=== PATIENT | male | born 1960 | race Caucasian/White ===

== ENCOUNTER 2018-09-15 12:19 | Day surgery (SDC) | payer OTHER ==
[2018-09-12 13:06] VITALS: BMI 38.4
[2018-09-15] MEDS ORDERED: DEXAMETHASONE SOD PHOSPHATE/PF 10 MG/ML SDV ONE (14:49)
[2018-09-15] MEDS ORDERED: MIDAZOLAM HCL 2 MG/2 ML SINGLE DOSE VIAL ONE ×2 (14:49→16:33)
[2018-09-15] MEDS ORDERED: BUPIVACAINE HCL/PF (5 MG/ML) 30 ML VIAL IJ ONE ×2 (14:50→16:28)
[2018-09-15] MEDS ORDERED: ONDANSETRON 4 MG/2 ML VIAL IVPUSH PRN (15:07)
[2018-09-15] MEDS ORDERED: oxyCODONE HCL 5 MG TABLET PO PRN ×3 (15:08→19:07)
[2018-09-15] MEDS ORDERED: LACTATED RINGERS SOLUTION 1,000 ML IV SCH ×2 (15:15→18:45)
[2018-09-15] MEDS ORDERED: HYDROmorphone HCL 0.5 MG/0.5 ML SYRINGE ONE (16:23)
[2018-09-15] MEDS ORDERED: ceFAZolin SODIUM 1 GM VIAL ONE (16:54)
[2018-09-15] MEDS ORDERED: ePHEDrine SULFATE 50 MG/1 ML AMPULE ONE (16:59)
--- NOTE | 2018-09-15 19:00 | PN ---
Progress Note (short form) - Note Progress Note: 57M s/p left ankle tendon transfer and application of short leg cast POD #0. -Pain control. -q15-30 min LLE neurovascular checks: ensure all toes are warm and well perfused with brisk capillary refill. -f/u trial of void: 8 hrs. max. -DVT PPx: -Chemical: ASA 81mg PO BID x 6 weeks. -Mechanical: SCD's, SEBASTIEN's. -Abx. x 24 hrs. post-op. -Incentive spirometry. -PT/OT/Rehab, OOB. -NWB LLE. -Elevate LLE on 3-4 pillows. -Cast care. -Diet as tolerated. -Care per medical hospitalist team. -Discharge planning: f/u [facility] [place] [facility] 09/21/2018; call for appointment: . -Will follow. Khoa Zee MD (Orthopaedic Surgery).
[2018-09-15] MEDS ORDERED: ONDANSETRON 4 MG/2 ML VIAL ONE (19:02)
--- NOTE | 2018-09-15 19:02 | OP ---
Operative Note - Note: Operative Date: 09/15/18 Pre-Operative Diagnosis: Recurrent left ankle instability Operation: Left ankle Easton-Fuentes procedure: peroneus brevis tendon transfer. Application of left short leg cast. Post-Operative Diagnosis: Same as Pre-op Surgeon: Khoa Zee Internal Review And Audit Compliance: Abdias Zee Anesthesiologist/NATUROPATH: Sid Santana Anesthesia: General, Local Estimated Blood Loss (mls): 0 Fluid Volume Replaced (mls): 700 (Crystalloid) Operative Report Dictated: Yes
[2018-09-15] MEDS ORDERED: oxyCODONE HCL 5 MG TABLET ONE (19:30)
[2018-09-15] MEDS ORDERED: ACETAMINOPHEN 325 MG TABLET (FP) ONE (19:34)
[2018-09-15] MEDS: ACETAMINOPHEN 325 MG TABLET (FP) PO SCH ×2 (19:35→21:41)
[2018-09-15] MEDS: oxyCODONE HCL 5 MG TABLET PO PRN ×2 (19:35→23:07)
[2018-09-15] MEDS: ASPIRIN COATED 81 MG TABLET.EC PO SCH (21:43)
[2018-09-15] MEDS ORDERED: PATIENT'S OWN MEDICATION (NON-FORMULARY) (Oxycodone Hcl [Oxycodone Hcl] 30 MG) PO SCH (22:00)
[2018-09-15] MEDS ORDERED: oxyCODONE HCL 10 MG SUSTAINED ACTING TABLET PO SCH (22:00)
[2018-09-15] MEDS ORDERED: ATORVASTATIN CA 40 MG TABLET (FP) PO SCH (22:00)
[2018-09-16] MEDS: ACETAMINOPHEN 325 MG TABLET (FP) PO SCH ×2 (03:45→09:15)
[2018-09-16] MEDS: oxyCODONE HCL 5 MG TABLET PO PRN ×3 (05:47→13:10)
[2018-09-16 08:15] VITALS: TEMP 98
[2018-09-16 08:39] LABS: HEMOGLOBIN 12.1 GM/dl (11.7-16.9); RDW 16.9 % (11.9-15.9); WHITE BLOOD COUNT 10.1 K/mm3 (4.0-10.8)
[2018-09-16 08:42] LABS: HEMATOCRIT 35.3 % (35.4-49); MCHC 34.3 g/dl (32.0-35.9); MEAN CELL VOLUME 90.4 fl (80-96); MEAN PLT VOLUME 9.2 fl (7.5-11.1); PLATELET COUNT 237 K/MM3 (134-434)
[2018-09-16 08:43] LABS: ANION GAP 8 MMOL/L (8-16); BLOOD UREA NITROGEN 20 mg/dl (7-18); CALCIUM 8.7 mg/dl (8.5-10); CHLORIDE 101 mmol/L (98-107); CO2 23 mmol/L (21-32); CREATININE 0.9 mg/dl (0.55-1.3); GLUCOSE,RANDOM 159 mg/dl (74-106); POTASSIUM 4.8 mmol/L (3.5-5.1); SODIUM 132 mmol/L (136-145)
[2018-09-16] MEDS ORDERED: PT OWN MED DRAWER 7, Y5N ONE (09:38)
[2018-09-16] MEDS: ASPIRIN COATED 81 MG TABLET.EC PO SCH (10:00)
[2018-09-16] MEDS ORDERED: VERAPAMIL HCL 120 MG E.R. TABLET PO SCH (10:00)
--- NOTE | 2018-09-16 10:59 | DS ---
Physical Exam: SUBJECTIVE: Patient seen and examined OBJECTIVE: Vital Signs Period Temp Pulse Resp BP Sys/Krueger Pulse Ox Last 24 Hr 97.4 F-98.3 F 78-88 13-20 132-158/79-115 95-100 PHYSICAL EXAM GENERAL: The patient is awake, alert, and fully oriented, in no acute distress. HEAD: Normal with no signs of trauma. EYES: PERRL, extraocular movements intact, sclera anicteric, conjunctiva clear. ENT: Ears normal, nares patent, oropharynx clear without exudates, moist mucous membranes. NECK: Trachea midline, full range of motion, supple. LUNGS: Breath sounds equal, clear to auscultation bilaterally, no wheezes, no crackles, no accessory muscle use. HEART: Regular rate and rhythm, S1, S2 without murmur, rub or gallop. ABDOMEN: Soft, nontender, nondistended, normoactive bowel sounds, no guarding, no rebound, no hepatosplenomegaly, no masses. EXTREMITIES: 2+ pulses, warm, well-perfused, no edema. NEUROLOGICAL: Cranial nerves II through XII grossly intact. Normal speech, gait not observed. PSYCH: Normal mood, normal affect. SKIN: Warm, dry, normal turgor, no rashes or lesions noted. LABS Laboratory Results - last 24 hr 09/16/18 09/16/18 07:25 07:25 WBC 10.1 RBC 3.90 L Hgb 12.1 Hct 35.3 L MCV 90.4 MCH 31.0 MCHC 34.3 RDW 16.9 H Plt Count 237 MPV 9.2 Sodium 132 L Potassium 4.8 Chloride 101 Carbon Dioxide 23 Anion Gap 8 BUN 20 H Creatinine 0.9 Creat Clearance w eGFR 86.98 Random Glucose 159 H Calcium 8.7 HOSPITAL COURSE: Date of Admission:09/15/18 Date of Discharge: 09/16/18 Discharge Summary Reason For Visit: OSTEOARTHRITIS LEFT ANKLE Condition: Stable - Instructions Diet, Activity, Other Instructions: Non-weight bearing LLE Elevate LUE with 3-4 pillows Take ASA 81mg BID x 6 weeks Follow up with Dr. Zee 09/21/18, call to make apt [phone] Disposition: HOME - Home Medications Comprehensive Discharge Medication List: Ambulatory Orders Aspirin [Aspirin EC] 81 mg PO DAILY 09/12/18 Atorvastatin Ca [Lipitor] 40 mg PO DAILY 09/12/18 Oxycodone HCl 30 mg PO QID 09/12/18 Verapamil HCl [Verapamil ER] 120 mg PO DAILY 09/12/18 Aspirin Coated [Ecotrin -] 81 mg PO BID tablet.ec 09/16/18
--- NOTE | 2018-09-16 11:27 | OP ---
DATE OF OPERATION: 09/15/2018 SURGEON: Khoa Zee MD ETYMOLOGY TEACHER: Abdias Zee MD PREOPERATIVE DIAGNOSIS: Lateral collateral instability, ankle with torn anterior talofibular ligament, previous failed surgery. POSTOPERATIVE DIAGNOSIS: Lateral collateral instability, ankle with torn anterior talofibular ligament, previous failed surgery. OPERATION PERFORMED: A Easton-Fuentes tendon transfer and augmented repair of lateral collateral ligament. Application of below-knee cast. ANESTHESIA: General with popliteal block. ANTIBIOTICS GIVEN: Kefzol 3 g. OPERATION DETAILS: Patient was correctly identified, brought in the operating room. Left lower extremity was prepped and draped in the routine manner with Betadine scrub solution, wiped off with alcohol, DuraPrep applied, a free drape applied in a field. A curved incision just at the posterior border of the fibula performed, extending laterally around the ankle to the point just 1 inch below the tip, curved around to the forefoot, to about 1 inch beyond the lateral malleolus. Dissection was taken through the skin and subcutaneous tissue. The fascia was opened. The peroneal tendons were identified. It must be noted the peroneus brevis had previously been operated on, and microsutures were found within the confines of the tendon. The tendon was split. The 1/2 of the split component was fragmented. The other 1/2 of the component was utilized for the Easton-Fuentes repair. The muscle was dissected off the actual tendon. This was by utilizing the stripping angle. At that point, the dissection was taken into the anterolateral angle of the ankle joint. It was noted that the ATFL and soft tissues were completely deficient in this area. A Brostrom-type repair of the soft tissues performed, but the augmented Easton-Fuentes repair commenced with. The good component of the peroneus tendon was harvested, left attached distally to the tubercle of the 5th metatarsal. The peroneus longus was identified and verified that movement of the great toe brought about function of the peroneus longus tendon. This was left well alone. The retinaculum of the tendons had been opened appropriately. Using a 6.5 drill was drilled through the fibula approximately 1 inch, starting at the tip of the fibula and coming out posteriorly. A Jesus needle was utilized to feed a suture that had been placed at the proximal tip of the harvested peroneus brevis tendon and this was fed through the actual hole made in the fibula and the tendon passed through this hole and then turned over on itself and stitched itself back into the tendon distally, this in order to achieve solid fixation. The actual tendon we used 2-0 Ethibond suturing the tendon on itself as well as the tendon to the lateral surface of the fibula as well. The foot was held in eversion and slight dorsiflexion. Once the sutures were seated and the tendon appropriately tied and released, the reconstruction was beautifully tight, thus bringing about a complete soft tissue reconstruction of the ankle complex as well as the ATFL tendon. This was very gratifying. The tissues were thoroughly lavaged. The retinaculum was then closed with 2-0 Vicryl. The subcutaneous tissue, which was so thin, was closed all in 1 layer with the skin with vertical mattress 3-0 nylon sutures. At that point, the knee was flexed, the foot held in slight eversion, and a very thick padding of the sole of the foot performed with very thickly padded, below-knee cast applied; 2 layers of plaster , then covered up with fiberglass. Operation went well. No complications. MD FRANCHESCA Nuñez/[id number]
--- NOTE | 2018-09-16 11:43 | HOSP ---
Physical Examination Vital Signs: Vital Signs Temperature 98.0 F 09/16/18 08:00 Pulse Rate 78 09/16/18 08:00 Respiratory Rate 20 09/16/18 08:00 Blood Pressure 152/88 09/16/18 08:00 O2 Sat by Pulse Oximetry (%) 98 09/16/18 04:00 Labs: CBC, BMP 09/16/18 07:25 09/16/18 07:25 Hospitalist Encounter Assessment: pt seen this morning as per request from Dr. Zee to discharge patient. pt noted to have dried blood on sole of cast. marked by nurse. pt ambulated with PT, down murphy on unit and trail of small amount of blood noted, Dr. Zee called and made aware, who will be coming later today to see patient. Discharge cancelled. patient made aware.
[2018-09-16] MEDS ORDERED: ceFAZolin SODIUM 1 GM VIAL ONE (11:57)
[2018-09-16] MEDS ORDERED: DEXTROSE 5%-WATER 100 ML IVPB ONE (11:58)
[2018-09-16] MEDS ORDERED: CEFAZOLIN 2 GM in DEXTROSE 5%-WATER 100 ML IVPB SCH (12:30)
[2018-09-16 15:02] VITALS: BP 170/90; PULSE 72
[2018-09-16] MEDS ORDERED: hydrALAZINE HCL 25 MG TABLET (FP) PO ONE (15:07)
--- NOTE | 2018-09-16 15:40 | DS ---
Physical Exam: SUBJECTIVE: Patient seen and examined, pt seen by Dr. Zee, advised non-weight bearing in Left foot, mild bleeding noted when pt walked with PT earlier this morning, pt put weight on heel. pt ok for discharge. OBJECTIVE: Vital Signs Period Temp Pulse Resp BP Sys/Krueger Pulse Ox Last 24 Hr 97.4 F-98.3 F 72-88 13-20 132-170/79-99 95-98 PHYSICAL EXAM GENERAL: The patient is awake, alert, and fully oriented, in no acute distress. HEAD: Normal with no signs of trauma. EYES: PERRL, extraocular movements intact, sclera anicteric, conjunctiva clear. ENT: Ears normal, nares patent, oropharynx clear without exudates, moist mucous membranes. NECK: Trachea midline, full range of motion, supple. LUNGS: Breath sounds equal, clear to auscultation bilaterally, no wheezes, no crackles, no accessory muscle use. HEART: Regular rate and rhythm, S1, S2 without murmur, rub or gallop. ABDOMEN: Soft, nontender, nondistended, normoactive bowel sounds, no guarding, no rebound, no hepatosplenomegaly, no masses. EXTREMITIES: 2+ pulses, warm, well-perfused, no edema. NEUROLOGICAL: Cranial nerves II through XII grossly intact. Normal speech, gait not observed. PSYCH: Normal mood, normal affect. SKIN: Warm, dry, normal turgor, no rashes or lesions noted. LABS Laboratory Results - last 24 hr 09/16/18 09/16/18 07:25 07:25 WBC 10.1 RBC 3.90 L Hgb 12.1 Hct 35.3 L MCV 90.4 MCH 31.0 MCHC 34.3 RDW 16.9 H Plt Count 237 MPV 9.2 Sodium 132 L Potassium 4.8 Chloride 101 Carbon Dioxide 23 Anion Gap 8 BUN 20 H Creatinine 0.9 Creat Clearance w eGFR 86.98 Random Glucose 159 H Calcium 8.7 HOSPITAL COURSE: Date of Admission:09/15/18 Date of Discharge: 09/16/18 Conrado Lopes is a 57M s/p left ankle tendon transfer and application of short leg cast POD #1 -Pain control. -DVT PPx: -Chemical: ASA 81mg PO BID x 6 weeks. -Mechanical: SCD's, SEBASTIEN's. -Abx. x 24 hrs. post-op. -Incentive spirometry. -PT/OT/Rehab, OOB. -NWB LLE. -Elevate LLE on 3-4 pillows. -Cast care. -Diet as tolerated. -Care per medical hospitalist team. -Discharge planning: f/u [facility] [place] [facility] 09/21/2018; call for appointment: . Minutes to complete discharge: 30 Discharge Summary Reason For Visit: OSTEOARTHRITIS LEFT ANKLE Condition: Stable - Instructions Diet, Activity, Other Instructions: Non-weight bearing LLE Elevate LUE with 3-4 pillows Take ASA 81mg BID x 6 weeks Follow up with Dr. Zee 09/21/18, call to make apt [phone] Disposition: HOME - Home Medications Comprehensive Discharge Medication List: Ambulatory Orders Aspirin [Aspirin EC] 81 mg PO DAILY 09/12/18 Atorvastatin Ca [Lipitor] 40 mg PO DAILY 09/12/18 Oxycodone HCl 30 mg PO QID 09/12/18 Verapamil HCl [Verapamil ER] 120 mg PO DAILY 09/12/18 Aspirin Coated [Ecotrin -] 81 mg PO BID tablet.ec 09/16/18 This patient is new to me today: Yes Date on this admission: 09/16/18 Emergency Visit: No Critical Care patient: No - Discharge Referral Referred to [facility] Med [facility].C[facility] No
--- NOTE | 2018-09-16 15:49 | PN ---
Progress Note (short form) - Note Progress Note: POD#1 Easton Fuentes repair L ankle General status and vitals all stable Apyrexial C/O mild incisional pain O/E Cast slight blood staining on the sole Not tight No neurovascular deficit Sensation fully intact Moving toes flex/ext No sign of C/S No calf or subsartorial tenderness ASSESS Doing well for D/C home PLAN Pain Mx Keep elevated Mobilize NWB Walker Can put foot on ground to stabilize himself See in office 2 weeks for cast check
== END 2018-09-16 16:15 | disposition home or self-care (01) ==
LOC: FASU 12:19 → FM/S 20:19 → FASU 09-16 16:15
PROVIDERS: ATTEND Orthopaedic Surgery Orthopaedic Surgery of the Spine
PROC: 0LXT0ZZ Transfer Left Ankle Tendon, Open Approach (ICD-10-PCS; principal; 2018-09-15 17:29)
DX: S93.492A Sprain of other ligament of left ankle, initial encounter (principal); M25.372 Other instability, left ankle; X58.XXXA Exposure to other specified factors, initial encounter; Y93.9 Activity, unspecified; Y92.9 Unspecified place or not applicable; Z98.890 Other specified postprocedural states
CPT/HCPCS: 36415; 80048; 85027; 94760; 97116-GP; 97161-GP

== ENCOUNTER 2018-09-18 09:31 | Day surgery (SDC) | payer OTHER ==
[2018-09-18] MEDS ORDERED: oxyCODONE HCL 5 MG TABLET PO ONE ×2 (11:52→11:55)
[2018-09-18 11:54] VITALS: BMI 38.4
[2018-09-18] MEDS ORDERED: MIDAZOLAM HCL 2 MG/2 ML SINGLE DOSE VIAL ONE (13:35)
[2018-09-18] MEDS ORDERED: LIDOCAINE HCL/PF 2% SDV 5ML VIAL ONE (13:44)
[2018-09-18] MEDS ORDERED: fentaNYL CITRATE 250 MCG/5 ML VIAL ONE (13:44)
[2018-09-18] MEDS ORDERED: PROPOFOL 20 ML ONE ×2 (13:44)
[2018-09-18] MEDS ORDERED: SUCCINYLCHOLINE CHLORIDE 200 MG/10 ML VIAL ONE (13:44)
[2018-09-18] MEDS ORDERED: ePHEDrine SULFATE 50 MG/1 ML AMPULE ONE (14:19)
--- NOTE | 2018-09-18 14:27 | PN ---
Progress Note (short form) - Note Progress Note: 57M s/p left ankle tendon transfer and application of short leg cast POD #3. -Pain control. -f/u trial of void: 8 hrs. max. -DVT PPx: -Chemical: ASA 81mg PO BID x 6 weeks. -Mechanical: SCD's, SEBASTIEN's. -Abx. x 24 hrs. post-op. -Incentive spirometry. -PT/OT/Rehab, OOB. -NWB LLE. -Crutch training. -Elevate LLE on 3-4 pillows up to level of heart. -Cast care. -Diet as tolerated. -Care per medical hospitalist team. -Discharge planning: f/u [facility] [place] [facility] 09/28/2018; call for appointment: . -Will follow. Khoa Zee MD (Orthopaedic Surgery).
--- NOTE | 2018-09-18 14:30 | OP ---
Operative Note - Note: Operative Date: 09/18/18 Pre-Operative Diagnosis: Left ankle wound hematoma Operation: 1. Removal left short leg cast. 2. Evaculation left ankle hematoma. 3. Re-application left short leg cast Post-Operative Diagnosis: Same as Pre-op Surgeon: Khoa Zee Coal Grader: Abdias Zee Anesthesiologist/WELDING PANTOGRAPH MACHINE OPERATOR: Curly Crystal Anesthesia: General Fluid Volume Replaced (mls): 500 (Crystalloid) Operative Report Dictated: Yes
[2018-09-18] MEDS ORDERED: oxyCODONE HCL 5 MG TABLET PO PRN (14:38)
[2018-09-18] MEDS ORDERED: ONDANSETRON 4 MG/2 ML VIAL IVPUSH PRN (14:38)
[2018-09-18] MEDS ORDERED: PROMETHAZINE HCL 25 MG/1 ML VIAL IVPUSH PRN (14:38)
[2018-09-18] MEDS ORDERED: oxyCODONE HCL 10 MG SUSTAINED ACTING TABLET ONE (17:41)
[2018-09-18] MEDS ORDERED: oxyCODONE HCL 10 MG SUSTAINED ACTING TABLET PO ONE (17:45)
[2018-09-18] MEDS ORDERED: oxyCODONE HCL 5 MG TABLET PO SCH (18:00)
[2018-09-18 19:58] VITALS: BP 150/52; PULSE 75; TEMP 98
[2018-09-18] MEDS ORDERED: ATORVASTATIN CA 40 MG TABLET (FP) PO SCH (22:00)
[2018-09-19] MEDS ORDERED: VERAPAMIL HCL 120 MG E.R. TABLET PO SCH (10:00)
[2018-09-19] MEDS ORDERED: ASPIRIN COATED 81 MG TABLET.EC PO SCH (10:00)
--- NOTE | 2018-09-20 09:38 | OP ---
DATE OF OPERATION: DATE OF DICTATION: SURGEON: Khoa Zee MD LOCKSTITCH CUP SETTER: Abdias Zee MD PREOPERATIVE DIAGNOSIS: Wound hemorrhage and hematoma, left ankle. POSTOPERATIVE DIAGNOSIS: Wound hemorrhage and hematoma, left ankle. OPERATION PERFORMED: Removal of cast with attention to wound with clean up and appropriate reapplication of a new cast. ANESTHESIA: General. DESCRIPTION OF PROCEDURE: With the patient in the supine position, left lower extremity was draped. The cast was removed. The wound was dry, except there was a small area of hematoma which was extruded through the actual wound. In the wound loosely applied sutures. A very well padded cast was applied. It is a below-knee cast with the foot in slight dorsiflexion to hold the position of the ankle reconstruction repair that is the Easton-Fuentes repair that was performed 3 days ago. No neurovascular compromise. Patient will be followed in the office on a regular basis. MD FRANCHESCA Nuñez/[id number]
== END 2018-09-18 18:15 | disposition home or self-care (01) ==
LOC: JASU-SURG 09:31
PROVIDERS: ATTEND Orthopaedic Surgery Orthopaedic Surgery of the Spine
PROC: 2W3RX2Z Immobilization of Left Lower Leg using Cast (ICD-10-PCS; principal; 2018-09-18 12:00)
DX: M96.840 Postprocedural hematoma of a musculoskeletal structure following a musculoskeletal system procedure (principal); M96.830 Postprocedural hemorrhage of a musculoskeletal structure following a musculoskeletal system procedure; Y83.8 Other surgical procedures as the cause of abnormal reaction of the patient, or of later complication, without mention of misadventure at the time of the procedure; Y79.1 Therapeutic (nonsurgical) and rehabilitative orthopedic devices associated with adverse incidents; Y92.9 Unspecified place or not applicable
CPT/HCPCS: 94760

== ENCOUNTER 2020-01-01 10:53 | Emergency (ER) | payer OTHER ==
[2020-01-01 11:01] VITALS: BP 143/93; PULSE 96; TEMP 100.7; BMI 36.9
[2020-01-01] MEDS ORDERED: IBUPROFEN 600 MG TABLET (FP) PO ONE (11:04)
[2020-01-01] MEDS ORDERED: ACETAMINOPHEN 325 MG TABLET (FP) ONE (11:04)
--- NOTE | 2020-01-01 11:08 | PDOC ---
Rapid Medical Evaluation Chief Complaint: Cold Symptoms Time Seen by Provider: 01/01/20 11:03 Medical Evaluation: Allergies Allergy/AdvReac Type Severity Reaction Status Date / Time No Known Allergies Allergy Verified 09/18/18 11:54 Vital Signs Temp Pulse Resp BP Pulse Ox 100.7 F H 96 H 18 143/93 100 01/01/20 10:58 01/01/20 10:58 01/01/20 10:58 01/01/20 10:58 01/01/20 10:58 01/01/20 11:03 HPI: COVID-19 CDC guideline data points: The patient is a 59yo M presents with exposure to and suspected COVID-19 with associated symptoms of fever, myalgias complicated by this/these comorbidities: HTN, HLD. ROS: NEGATIVE: difficulty breathing, shortness of breath, chest pain, lightheadedness, dizziness, nausea, vomiting and diarrhea. Other 12 point ROS reviewed and negative. Exam: General: NAD, Well-Appearing, Awake, Alert Oriented x3. Vital signs stable. ENT: No rhinorrhea or nasal congestion. Neck: FROM, no midline tenderness. Lungs: Clear to auscultation bilaterally without wheezes, rhonchi or rales. Normal excursion. Patient is able to speak in full sentences. Heart: HR: 96. Regular rhythm, S1-S2 present, no murmurs rubs or gallops. Abdomen: Non-distended. MSK/Extremities: No decrease ROM, No obvious deformities. No obvious cyanosis noted. Neuro: Normal Gait, Cranial Nerves II through XII Grossly Intact. Skin: No obvious rashes, bruising. Color Normal Appearing. Assessment/Plan: myalgias, fever Patient has a history of this/these comorbidities: HTN, HLD, cardiomyopathy. Recent travel to [place]- back x3 weeks. Possible COVID exposure given recent Patient does not meet testing criteria at this time. ASSESSMENT: Denies recent travel and known Covid exposure. Treatment: Covid swab Tylenol 975mg PO now Motrin 600mg PO now Discharge Discharge Disposition - Diagnosis Counseled about COVID-19 virus infection URI (upper respiratory infection) Qualifiers: URI type: unspecified viral URI Qualified Code(s): J06.9 - Acute upper respiratory infection, unspecified - Discharge Dispostion Disposition: HOME Decision to Admit order: No - Referrals - Patient Instructions Printed Discharge Instructions: DI for Viral Upper Respiratory Infection -- Adult, [facility]-Coronavirus Instructions, [facility] COVID-19 Isolation Protocol - Post Discharge Activity
== END 2020-01-01 11:20 | disposition home or self-care (01) ==
LOC: JER 10:53
DX: J06.9 Acute upper respiratory infection, unspecified (principal)
CPT/HCPCS: 99283-25; U0003

== ENCOUNTER 2020-01-18 09:18 | Day surgery (SDC) | payer OTHER ==
[2020-01-14 12:17] VITALS: BMI 35.4
[2020-01-18] MEDS ORDERED: ROPIVACAINE HCL 0.5% 30ML VIAL ONE (09:48)
[2020-01-18] MEDS ORDERED: MIDAZOLAM HCL 2 MG/2 ML SINGLE DOSE VIAL ONE (09:48)
--- NOTE | 2020-01-18 10:14 | PN ---
Progress Note (short form) - Note Progress Note: 59M s/p RIGHT shoulder open Edilson procedure (distal claviculectomy), Neer Decompression (CA ligament release and acromioplasty), and primary rotator cuff tear (full thickness) POD #0. -Pain control: Duexis, Percocet ordered to patient's pharmacy. -Incentive spirometry. -No chemical DVT PPx. -LUE sling. -Begin RIGHT shoulder pendulum swings when pain controlled. -Daily RIGHT elbow, wrist & hand ROM. -Keep dressing clean & dry. -f/u in [facility] [place] [facility] within 7-10 days; call for appointment; . Khoa Zee MD (Orthopaedic Surgery).
--- NOTE | 2020-01-18 10:16 | OP ---
Operative Note - Note: Operative Date: 01/18/20 Pre-Operative Diagnosis: Right shoulder impingement syndrome with rotator cuff derangement Operation: Right shoulder open: 1. Edilson procedure (distal claviculectomy). 2. Neer Decompression (CA ligament release and acromioplasty). 3. Primary rotator cuff tear (full thickness) Post-Operative Diagnosis: Same as Pre-op Surgeon: Khoa Zee Rn Procedures: Abdias Zee Anesthesiologist/WOOD TURNER: Amberly Sanders Anesthesia: General, Local Specimens Removed: Excision arthroplasty right AC joint Estimated Blood Loss (mls): 20 Fluid Volume Replaced (mls): 1,000 (Crystalloid) Operative Report Dictated: Yes
[2020-01-18] MEDS ORDERED: fentaNYL CITRATE 250 MCG/5 ML VIAL ONE (11:04)
[2020-01-18] MEDS ORDERED: HYDROmorphone HCl 2 MG/ML VIAL ONE (11:31)
[2020-01-18] MEDS ORDERED: SUCCINYLCHOLINE CHLORIDE 200 MG/10 ML SYRINGE ONE (11:49)
[2020-01-18] MEDS ORDERED: ceFAZolin SODIUM 1 GM VIAL ONE (11:49)
[2020-01-18] MEDS ORDERED: ROCURONIUM BROMIDE 50 MG/5 ML SYRINGE ONE (11:49)
[2020-01-18] MEDS ORDERED: ONDANSETRON 4 MG/2 ML VIAL ONE (12:56)
[2020-01-18] MEDS ORDERED: TRANEXAMIC ACID 1000 MG/10 ML VIAL ONE (12:56)
[2020-01-18] MEDS ORDERED: DEXAMETHASONE SOD PHOSPHATE 4 MG/1 ML VIAL ONE (12:56)
[2020-01-18] MEDS ORDERED: GLYCOPYRROLATE 0.2 MG/1 ML VIAL ONE (13:19)
[2020-01-18] MEDS ORDERED: NEOSTIGMINE METHYLSULFATE 0.5 MG/ML - 10 ML MDV ONE (13:19)
[2020-01-18] MEDS ORDERED: oxyCODONE HCL 5 MG TABLET PO PRN (13:56)
[2020-01-18] MEDS ORDERED: PROMETHAZINE HCL 25 MG/1 ML VIAL IVPUSH PRN (13:56)
[2020-01-18] MEDS ORDERED: PROMETHAZINE HCL 25 MG/1 ML VIAL ONE (13:56)
[2020-01-18] MEDS ORDERED: ONDANSETRON 4 MG/2 ML VIAL IVPUSH PRN (13:56)
[2020-01-18] MEDS ORDERED: ACETAMINOPHEN 1000 MG/100 ML VIAL (NON FORMULARY) IVPB ONE (13:57)
[2020-01-18] MEDS ORDERED: LACTATED RINGERS SOLUTION 1,000 ML IV SCH (14:00)
[2020-01-18 16:17] VITALS: BP 118/86; PULSE 76; TEMP 97.9
--- NOTE | 2020-01-18 19:21 | OP ---
DATE OF OPERATION: 01/18/2020 SURGEON: Khoa Zee MD AUDIOVISUAL TECH: Abdias Zee MD PREOPERATIVE DIAGNOSIS: Recurrent post-traumatic rotator cuff repair with associated impingement syndrome, shoulder. POSTOPERATIVE DIAGNOSIS: Recurrent post-traumatic rotator cuff repair with associated impingement syndrome, shoulder. OPERATION PERFORMED: Right shoulder open: 1. Distal claviculectomy. (59585) 2. Acromioplasty & CA ligament release. (65112) 3. Repair of rotator cuff. (99242) 4. Excision arthroplasty AC joint ANESTHESIA: General. ANTIBIOTICS GIVEN: Ancef 2 g, tranexamic acid given as well. OPERATION DETAILS: With the patient correctly identified, brought to the operating room. Right upper extremity was prepped, draped in the routine manner with Betadine scrub solution, wiped off with alcohol, DuraPrep applied. A free drape of the right upper limb performed. The axilla was sealed out of harm's way. The incision was made from the tip of the acromion to the tip of the coracoid. The dissection was taken through the skin, subcutaneous tissue, down to the superior surface of the clavicle. This was then mobilized by placing a sharp Hohmann under the cranial and caudal border of the clavicle to lift the clavicle gently and delineate the acromioclavicular joint. A full acromioclavicular joint excision arthroplasty performed by resecting the lateral 1 cm of bone off the clavicle in a beveled fashion using oscillating saw. The joint itself appeared markedly arthritic once it had been resected. The coracoid which was beaked and the tip of the acromion were difficult to identify. This because of previous scar tissue, indicating this was either the result of previous arthroscopic surgery or possibly scarring as a result of the trauma that encountered. The undersurface of the acromion was identified. Using a peanut, the plane was developed between the undersurface of the acromion and the actual cuff. It must be noted this proved difficult and required sharp dissection as well as blunt dissection as outlined above. An [facility] retractor was placed in the undersurface of the deltoid, and gently lifting the deltoid up, the coracoacromial ligament was identified and transected 90 degrees to the fibers of the ligament itself. This freed the front of the rotator cuff. A Hohmann retractor was placed on the undersurface of the acromion, and a beveled acromioplasty was performed with an oscillating saw, using osteotomes as well to free the undersurface, taking out a thick fragment of bone which was digging into the actual rotator cuff. The acromion was intact and uncomplicated. Now, with digital palpation, the entire subacromial space was opened. This provided a marked freeing of the entire subacromial space. The rotator cuff now with the tissues appropriately retracted with self- retaining retractors, the cuff was identified. This was identified by flexing, by clearly putting the shoulder through a full range of movement, and the cuff tear, which measured approximately 3 cm, which was a combination of the anterior cable as well extending posteriorly towards infraspinatus was sutured using No. 1 Vicryl interrupted sutures. Tight water-seal closure achieved. The wounds were thoroughly lavaged. At that point, minor trimming of sharp edges of bone was performed with the rongeur. Closures: Subcutaneous fat with No. 2-0 Vicryl, skin with 3-0 Monocryl, Steri-Strips. Operation went well. No complications. A sling has been applied. MD FRANCHESCA Nuñez/[id number] MTDRuma
--- NOTE | 2020-01-23 16:45 | PATH ---
Surgical Pathology Report Patient Name: LUCIAN BAEZ [facility]. Rec. #: [id number] /Age/Gender: 1960 (Age: 59) / M Account: [id number] Location: [facility] Taken: 01/18/2020 Received: 01/18/2020 Reported: 01/23/2020 Physicians: Khoa Zee M.D. Specimen(s) Received RIGHT CLAVICLE/ACROMIUM Clinical History Right RCR/neer decompression/rotator cuff tear Final Diagnosis CLAVICLE/ACROMION, RIGHT, ARTHROPLASTY, ROTATOR CUFF REPAIR, DISTAL CLAVICULECTOMY: BONE WITH REACTIVE CHANGES, BONE MARROW WITH TRILINEAGE HEMATOPOIESIS, AND SKELETAL MUSCLE. Electronically Signed Blanca Doyle M.D. Gross Description Received in formalin labeled "right clavicle/acromion," are 2 mathias-yellow portions of bone measuring 2.7 x 1.5 x 0.7 cm and 3.3 x 2.1 x 1.4 cm. Also received within the same container is a 1.5 x 1.5 x 0.4 cm mathias brown portion of muscle and fibrous tissue. Adjunct English Instructor sections are submitted in one cassette, following decalcification. 01/22/2020 [facility]01/22/2020
== END 2020-01-18 16:00 | disposition home or self-care (01) ==
LOC: FASU 09:18
PROVIDERS: ATTEND Orthopaedic Surgery Orthopaedic Surgery of the Spine
PROC: 0LQ10ZZ Repair Right Shoulder Tendon, Open Approach (ICD-10-PCS; 2020-01-18)
PROC: 0PB90ZZ Excision of Right Clavicle, Open Approach (ICD-10-PCS; principal; 2020-01-18 12:38)
PROC: 0MN10ZZ Release Right Shoulder Bursa and Ligament, Open Approach (ICD-10-PCS; 2020-01-18 12:38)
DX: M75.121 Complete rotator cuff tear or rupture of right shoulder, not specified as traumatic (principal); M75.41 Impingement syndrome of right shoulder
CPT/HCPCS: 88304-TC; 88311-TC; 94760; J0131

== ENCOUNTER 2020-02-15 06:29 | Day surgery (SDC) | payer OTHER ==
[2020-02-11 16:54] VITALS: BMI 36.1
[~2020-02-15 06:29] MED LIST: BUPIVACAINE HCL/PF 0.25% (2.5MG/ML) 10 ML VIAL IJ ONE; methylPREDNISolone ACET (DEPO) 40 MG/1 ML VIAL IM ONE
--- OUTSIDE RECORDS SUMMARY | 2020-02-15 06:33 | XMS ---
:1960 Author Organization [facility] Support Name Relationship Address Phone UE, UNEMPLOYED Unavailable Unavailable Unavailable UE Unavailable Unavailable Unavailable APRIL BAEZ [address] [place] [address] APRIL BAEZ Spouse [address] [place] [address] Re-disclosure Warning The records that you are about to access may contain information from federally- assisted alcohol or drug abuse programs. If such information is present, then the following federally mandated warning applies: This information has been disclosed to you from records protected by federal confidentiality rules (42 CFR part 2). The federal rules prohibit you from making any further disclosure of this information unless further disclosure is expressly permitted by the written consent of the person to whom it pertains or as otherwise permitted by 42 CFR part 2. A general authorization for the release of medical or other information is NOT sufficient for this purpose. The Federal rules restrict any use of the information to criminally investigate or prosecute any alcohol or drug abuse patient.The records that you are about to access may contain highly sensitive health information, the redisclosure of which is protected by Article 27-F of the [facility] Public Health law. If you continue you may haveaccess to information: Regarding HIV / AIDS; Provided by facilities licensed or operated by the [facility] Office of Mental Health; or Provided by the [facility] Office for People With Developmental Disabilities. If such information is present, then the following [facility] mandated warning applies: This information has been disclosed to you from confidential records which are protected by state law. State law prohibits you from making any further disclosure of this information without the specific written consent of the person to whom it pertains, or as otherwise permitted by law. Any unauthorized further disclosure in violation of state law may result in a fine or longterm sentence or both. A general authorization for the release of medical or other information is NOT sufficient authorization for further disclosure. Insurance Providers Payer name Policy type Policy ID Covered Covered republican's Policy P kieran / Coverage republican ID relationship to [employer] Inf ormation type [employer] LOCAL [id number] - [id number] [place] [id number] [facility] SELF PAY INSURANCE Results ID Date Data Source [id number] 02/11/2020 08:59:00 AM EDT [facility] Name Value Range Interpretation Description Data Sup porting Code Source(s) Document(s ) SARS [facility] coronavirus 2 RNA This lab was ordered by JORDEN NEAL and reported by [facility]. ID Date Data Source [id number] 02/07/2020 09:50:00 AM EDT [facility] Name Value Range Interpretation Description Data Sup porting Code Source(s) Document(s ) SARS [facility] Coronavirus 2 RNA Presence Respiratory Specimen TR Probe Detection This lab was ordered by [place] and rep orted by [facility]. ID Date Data Source [id number] 01/14/2020 12:44:00 PM EDT [facility] Name Value Range Interpretation Description Data Sup porting Code Source(s) Document(s ) SARS [facility] coronavirus 2 RNA This lab was ordered by JORDEN NEAL and reported by [facility]. ID Date Data Source [id number] 01/09/2020 08:10:00 PM EDT [facility] Name Value Range Interpretation Code Description Data Diane rce(s) Supporting Document(s ) SARS-COV-2 [facility] RNA RESP Diagnostics QL TR+PROBE This lab was ordered by [facility] and reported by [facility]. ID Date Data Source [id number] 01/02/2020 11:02:00 AM EDT [facility] Name Value Range Interpretation Description Data Sup porting Code Source(s) Document(s ) SARS [facility] coronavirus 2 RNA This lab was ordered by [facility] and reported by [facility]. ID Date Data Source [id number] 12/01/2019 12:00:00 AM EDT [facility] Name Value Range Interpretation Code Description Data Diane rce(s) Supporting Document(s ) 2019-nCoV [facility] RNA XXX TR+probe- Imp This lab was ordered by MD EDU DUVAL and reported by [facility] Procedure
[2020-02-15] MEDS ORDERED: methylPREDNISolone ACET (DEPO) 40 MG/1 ML VIAL ONE (07:21)
[2020-02-15] MEDS ORDERED: BUPIVACAINE HCL/PF 0.25% (2.5MG/ML) 10 ML VIAL ONE (07:22)
[2020-02-15] MEDS ORDERED: EPINEPHrine 1:1,000 1 MG/1 ML - 30ML VIAL (INJECTION) ONE (07:22)
[2020-02-15] MEDS ORDERED: SUCCINYLCHOLINE CHLORIDE 200 MG/10 ML SYRINGE ONE (07:39)
[2020-02-15] MEDS ORDERED: MIDAZOLAM HCL 2 MG/2 ML SINGLE DOSE VIAL ONE (07:39)
[2020-02-15] MEDS ORDERED: PROPOFOL 20 ML ONE (07:39)
[2020-02-15] MEDS ORDERED: ePHEDrine SULFATE 50 MG/1 ML AMPULE ONE (08:25)
[2020-02-15] MEDS ORDERED: methylPREDNISolone ACET (DEPO) 40 MG/1 ML VIAL IM ONE (08:52)
[2020-02-15] MEDS ORDERED: BUPIVACAINE HCL/PF 0.25% (2.5MG/ML) 10 ML VIAL IJ ONE (08:52)
[2020-02-15] MEDS ORDERED: oxyCODONE HCL 5 MG TABLET PO PRN (09:12)
[2020-02-15] MEDS ORDERED: PROMETHAZINE HCL 25 MG/1 ML VIAL IVPUSH PRN (09:12)
[2020-02-15] MEDS ORDERED: ONDANSETRON 4 MG/2 ML VIAL IVPUSH PRN (09:12)
--- NOTE | 2020-02-15 09:12 | PN ---
Progress Note (short form) - Note Progress Note: 59M s/p surgical arthroscopy LEFT knee, medial femoral chondroplasty & removal of numerous large loose bodies POD #0. -Pain control. -Incentive spirometry. -No chemical DVT PPx. -WBAT RLE. -Keep dressing clean & dry. -Cane vs crutches. [facility]; call for appointment; . Khoa Zee MD (Orthopaedic Surgery).
--- NOTE | 2020-02-15 09:13 | OP ---
Operative Note - Note: Operative Date: 02/15/20 Pre-Operative Diagnosis: Internal derangement left knee Operation: Surgical arthroscopy left knee with: 1. Removal of multiple large loose bodies. 2. Chondroplasty medial femoral condyle Findings: Grade 4 chondromalacia: retropatellar surface, medial femoral condyle Degenerative ACL Rim osteophytes Post-Operative Diagnosis: Same as Pre-op Surgeon: Khoa Zee Anesthesiologist/VISUAL ARTS TEACHER: Sid Santana Anesthesia: General Fluid Volume Replaced (mls): 600 (Crystalloid) Operative Report Dictated: Yes
[2020-02-15] MEDS ORDERED: LACTATED RINGERS SOLUTION 1,000 ML IV SCH (09:15)
[2020-02-15] MEDS ORDERED: oxyCODONE HCL 5 MG TABLET ONE (09:59)
[2020-02-15] MEDS ORDERED: ASPIRIN COATED 81 MG TABLET.EC PO SCH (10:00)
[2020-02-15] MEDS ORDERED: PATIENT'S OWN MEDICATION (NON-FORMULARY) (Oxycodone Hcl [Oxycodone Hcl] 30 MG) PO SCH (10:00)
[2020-02-15 10:15] VITALS: TEMP 97.8
[2020-02-15 11:01] VITALS: BP 126/86; PULSE 76
--- NOTE | 2020-02-15 17:47 | OP ---
DATE OF OPERATION: 02/15/2020 SURGEON: Khoa Zee M.D. PREOPERATIVE DIAGNOSIS: Internal derangement left knee. 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 OPERATION PERFORMED: 1. Left knee arthroscopy with medial femoral condyle chondroplasty. (30948) 2. Removal of loose bodies. 3. Intra-articular (large joint) injection with 5cc 0.25% Marcaine and 1cc depomedrol (40mg/mL). (29056) ANESTHESIA: General. ANTIBIOTICS GIVEN: 2 g Ancef preoperative. INDICATION: Patient failed conservative treatment, had persistent locking and giving way sensation left knee. In the supine position using a left-sided leg gonzales in the bloodless field, a standard anterolateral and anteromedial portal was utilized. Arthroscopic instrumentation introduced into the knee . The arthroscopic findings revealed the presence of a fibrillar synovitis with patchy inflammatory changes in the suprapatellar pouch and the synovium diffusely was fibrillar but only patchy areas revealed inflammatory change. Multiple loose bodies were seen in the joint; these were washed out readily. The popliteal hiatus was entered on the lateral side revealing some loose bodies which were manipulated out of this area and with the suction device removed appropriately. The arthroscopic evaluation revealed the presence of fibrillar changes, that is Outerbridge level 2 changes on the medial patellar facets, but the lateral facets, they were ranging from 3 to grade 4 Outerbridge changes. Rim of osteophyte was noted along the femoral condyle, particularly in the area of the supracondylar pouch as well as the intracondylar notch. The trochlear groove revealed level 3 and 4 Outerbridge changes. The medial femoral condyle was most affected with some areas of eburnated bone and placing a hook, using the elbow of the hook loose unstable elements of hyaline cartilage were identified and shaved appropriately using a 3.5 shaver. This flattened and removed unstable fragments of hyaline cartilage. The rim osteophyte on the tibial plateau was really not a particularly on the area towards the intracondylar notch. The medial meniscus was abnormal in that it was stiff to probing but was fully intact. No tears were seen. This applied to both medial and lateral side. Staining of the tissues from previous cortisone injections readily throughout the synovium noted. Intracondylar notch revealed thickened ligamentum mucosae, as well as intact anterior cruciate ligament, albeit it did not appear normal, hence it was convoluted and some areas fragmented. The lateral joint surface was better in terms of preservation of the hyaline cartilage and these were Outerbridge level 2 and in some areas level 3 changes. Popliteus tendon was readily identified. The wound was lavaged once the shaving chondroplasty was completed, further extensive washout was performed. The wounds were closed with 3-0 nylon, and the joint instilled with 1mg of Depo-Medrol and 5 mL of Marcaine. No complications. MD FRANCHESCA Nuñez/[id number] MTDD
[2020-02-16] MEDS ORDERED: VERAPAMIL HCL 120 MG E.R. TABLET PO SCH (10:00)
[2020-02-16] MEDS ORDERED: ATORVASTATIN CA 40 MG TABLET (FP) PO SCH (22:00)
== END 2020-02-15 11:00 | disposition home or self-care (01) ==
LOC: FASU 06:29
PROVIDERS: ATTEND Orthopaedic Surgery Orthopaedic Surgery of the Spine
PROC: 0SCD4ZZ Extirpation of Matter from Left Knee Joint, Percutaneous Endoscopic Approach (ICD-10-PCS; 2020-02-15)
PROC: 0SBD4ZZ Excision of Left Knee Joint, Percutaneous Endoscopic Approach (ICD-10-PCS; principal; 2020-02-15 08:34)
DX: M17.12 Unilateral primary osteoarthritis, left knee (principal); M24.19 Other articular cartilage disorders, other specified site
CPT/HCPCS: 94760

== ENCOUNTER 2020-11-12 06:06 | Inpatient (IN) | payer OTHER ==
[2020-11-06 16:05] VITALS: BMI 36.6
[2020-11-12] MEDS ORDERED: LOCK ITEM NR ONE ×2 (06:34→06:51)
[2020-11-12] MEDS ORDERED: SODIUM CHLORIDE 0.9% P/F 10 ML VIAL IJ ONE (06:56)
[2020-11-12] MEDS ORDERED: MIDAZOLAM HCL 2 MG/2 ML SINGLE DOSE VIAL ONE ×3 (06:56→07:27)
[2020-11-12] MEDS ORDERED: BUPIVACAINE HCL/PF 0.5% (5MG/ML) 10 ML VIAL ONE (06:56)
[2020-11-12] MEDS ORDERED: BUPIVACAINE LIPOSOME/PF (EXPAREL) 266 MG/20 ML VIAL ONE (06:56)
[2020-11-12] MEDS ORDERED: LIDOCAINE HCL/PF 2% SDV 5ML VIAL ONE (07:27)
[2020-11-12] MEDS ORDERED: ceFAZolin SODIUM 1 GM VIAL ONE ×2 (07:27→09:38)
[2020-11-12] MEDS ORDERED: PROPOFOL 20 ML ONE ×2 (07:27)
[2020-11-12] MEDS ORDERED: VANCOMYCIN 1,000 MG VIAL (RESTRICTED TO ID ONLY) ONE (08:43)
[2020-11-12] MEDS ORDERED: TRANEXAMIC ACID 1000 MG/10 ML VIAL ONE (09:38)
[2020-11-12] MEDS ORDERED: BENZOIN/ALOE VERA/STORAX/TOLU 58 ML BOTTLE ONE (10:58)
[2020-11-12] MEDS ORDERED: KETOROLAC TROMETHAMINE 30 MG/1 ML VIAL ONE (11:06)
[2020-11-12 11:47] LABS: HIV INTERPRETATION NEGATIVE (NEGATIVE)
[2020-11-12] MEDS ORDERED: MAGNESIUM HYDROX 2400MG/30ML ORAL SUSPENSION 30 ML CUP PO PRN (11:59)
[2020-11-12] MEDS ORDERED: MAG HYDROX/AL HYDROX/SIMETH 30 ML UNIT-DOSE CUP PO PRN (11:59)
[2020-11-12] MEDS ORDERED: LACTATED RINGERS SOLUTION 1,000 ML IV SCH (12:00)
[2020-11-12] MEDS ORDERED: HYDROmorphone HCL/PF 1 MG/ML VIAL ONE (12:14)
[2020-11-12] MEDS: HYDROmorphone HCL/PF 1 MG/ML VIAL ONE ×3 (12:25→12:35)
[2020-11-12] MEDS ORDERED: HYDROmorphone HCl 2 MG/ML VIAL IVPUSH PRN ×2 (12:27→13:01)
[2020-11-12] MEDS ORDERED: ONDANSETRON 4 MG/2 ML VIAL ONE (12:34)
[2020-11-12] MEDS: ONDANSETRON 4 MG/2 ML VIAL IVPUSH PRN ×3 (12:37→23:46)
[2020-11-12] MEDS ORDERED: PCA PUMP NR ONE ×4 (12:37→17:59)
[2020-11-12] MEDS ORDERED: LORazepam 2 MG/ML SDV VIAL IVPB PRN (12:40)
[2020-11-12] MEDS: HYDROmorphone *PCA* 10MG/50ML DISP.SYRIN PCA SCH ×3 (12:47→18:20)
[2020-11-12] MEDS ORDERED: oxyCODONE HCL 5 MG TABLET PO SCH (14:00)
[2020-11-12] MEDS ORDERED: HYDROmorphone HCl 2 MG/ML VIAL SQ PRN (16:46)
[2020-11-12] MEDS: KETOROLAC TROMETHAMINE 30 MG/1 ML VIAL IVPUSH SCH ×2 (17:48→18:34)
[2020-11-12] MEDS: CEFAZOLIN 2 GM/D5W 2 GM/50 ML ML IVPB SCH ×3 (17:50→23:44)
[2020-11-12] MEDS: ASPIRIN 81 MG CHEWABLE TABLETS PO SCH (21:25)
[2020-11-12] MEDS: SENNOSIDES/DOCUSATE COMBO (SENNA PLUS) TABLET (UD) PO SCH (21:25)
[2020-11-12] MEDS ORDERED: CELECOXIB 200 MG CAPSULE PO SCH (22:00)
[2020-11-13] MEDS: KETOROLAC TROMETHAMINE 30 MG/1 ML VIAL IVPUSH SCH (01:14)
[2020-11-13] MEDS: CEFAZOLIN 2 GM/D5W 2 GM/50 ML ML IVPB SCH (06:06)
[2020-11-13 08:08] LABS: HEMATOCRIT 32.5 % (35.4-49); HEMOGLOBIN 11.1 GM/dl (11.7-16.9); MCH 31.9 pg (25.7-33.7); MEAN CELL VOLUME 93.8 fl (80-96); MEAN PLT VOLUME 8.9 fl (7.5-11.1); PLATELET COUNT 248 10^3/uL (134-434); RBC 3.46 M/mm3 (4.00-5.60); RDW 13.8 % (11.9-15.9); WHITE BLOOD COUNT 10.4 K/mm3 (4.0-10.8)
[2020-11-13 08:12] LABS: CALCIUM 8.1 mg/dl (8.5-10); CREATININE 1.1 mg/dl (0.55-1.3)
[2020-11-13] MEDS: PANTOPRAZOLE 40 MG TABLET PO SCH (09:47)
[2020-11-13] MEDS: ASPIRIN 81 MG CHEWABLE TABLETS PO SCH ×2 (09:47→21:06)
[2020-11-13] MEDS: SENNOSIDES/DOCUSATE COMBO (SENNA PLUS) TABLET (UD) PO SCH ×2 (09:48→21:06)
[2020-11-13] MEDS: VERAPAMIL HCL 120 MG E.R. TABLET PO SCH (09:52)
[2020-11-13] MEDS ORDERED: PCA PUMP NR ONE (11:25)
[2020-11-13] MEDS: HYDROmorphone *PCA* 10MG/50ML DISP.SYRIN PCA SCH (11:32)
[2020-11-13] MEDS ORDERED: KETOROLAC TROMETHAMINE 30 MG/1 ML VIAL IVPUSH PRN (11:34)
[2020-11-13] MEDS ORDERED: METOCLOPRAMIDE HCL INJECTION 10 MG/2 ML VIAL IVPUSH ONE (11:45)
[2020-11-13] MEDS ORDERED: ACETAMINOPHEN 1000 MG/100 ML VIAL (NON FORMULARY) IVPB ONE (11:45)
[2020-11-13] MEDS ORDERED: ATORVASTATIN CA 40 MG TABLET (FP) PO SCH (22:00)
[2020-11-14 04:36] VITALS: TEMP 98.3
[2020-11-14 08:37] LABS: HEMATOCRIT 28.3 % (35.4-49); HEMOGLOBIN 9.8 GM/dl (11.7-16.9); MCH 32.1 pg (25.7-33.7); MCHC 34.5 g/dl (32.0-35.9); MEAN CELL VOLUME 93.2 fl (80-96); MEAN PLT VOLUME 8.9 fl (7.5-11.1); PLATELET COUNT 179 10^3/uL (134-434); RBC 3.04 M/mm3 (4.00-5.60); RDW 13.9 % (11.9-15.9); WHITE BLOOD COUNT 7.2 K/mm3 (4.0-10.8)
[2020-11-14 09:28] VITALS: BP 136/78; PULSE 103
[2020-11-14] MEDS: VERAPAMIL HCL 120 MG E.R. TABLET PO SCH (09:29)
[2020-11-14] MEDS: PANTOPRAZOLE 40 MG TABLET PO SCH (09:29)
[2020-11-14] MEDS: ASPIRIN 81 MG CHEWABLE TABLETS PO SCH (09:29)
[2020-11-14] MEDS: SENNOSIDES/DOCUSATE COMBO (SENNA PLUS) TABLET (UD) PO SCH (09:29)
== END 2020-11-14 12:41 | disposition home or self-care (01) | DRG 470 ==
LOC: FM/S 06:06 → UNDOADMIN 06:06 → FM/S 14:22
PROVIDERS: ADMIT Orthopaedic Surgery Orthopaedic Surgery of the Spine; ATTEND Orthopaedic Surgery Orthopaedic Surgery of the Spine
PROC: 0SRD0J9 Replacement of Left Knee Joint with Synthetic Substitute, Cemented, Open Approach (ICD-10-PCS; principal; 2020-11-12 09:20)
DX: M17.12 Unilateral primary osteoarthritis, left knee (principal); I42.2 Other hypertrophic cardiomyopathy; I10 Essential (primary) hypertension; E78.5 Hyperlipidemia, unspecified; G47.33 Obstructive sleep apnea (adult) (pediatric); K21.9 Gastro-esophageal reflux disease without esophagitis; E66.9 Obesity, unspecified; Z68.36 Body mass index [BMI] 36.0-36.9, adult
CPT/HCPCS: 36415; 73560-TC-LT-FY; 80048; 85027; 86803; 87389; 94760; 97010-GP; 97116-GP; 97161-GP; J0131

== ENCOUNTER 2020-12-04 12:15 | Inpatient (IN) | payer OTHER ==
[2020-12-04 12:43] VITALS: BMI 36.6
[2020-12-04] MEDS ORDERED: AMOX TR/POT CLAV 500MG/125MG TABLETS (FP) PO ONE (13:39)
[2020-12-04] MEDS ORDERED: AMOX TR/POT CLAV 875MG/125MG TABLETS (FP) PO ONE (13:44)
[2020-12-04] MEDS ORDERED: oxyCODONE HCL 5 MG TABLET PO ONE (13:55)
[2020-12-04] MEDS ORDERED: AMOX TR/POT CLAV 875MG/125MG TABLETS (FP) ONE (14:14)
[2020-12-04] MEDS ORDERED: oxyCODONE HCL 5 MG TABLET ONE (14:14)
[2020-12-04] MEDS ORDERED: VANCOMYCIN 1 GM in D5W (PRE-DOCKED) 1,000 MG/250 ML IVPB ONE (14:50)
[2020-12-04 15:04] LABS: BASO % 1.1 % (0-2.0); EOS % 6.6 % (0-4.5); HEMATOCRIT 35.3 % (35.4-49); HEMOGLOBIN 11.9 GM/dL (11.7-16.9); MCH 30.9 pg (25.7-33.7); MCHC 33.7 g/dl (32.0-35.9); MEAN CELL VOLUME 91.7 fl (80-96); MEAN PLT VOLUME 8.1 fl (7.5-11.1); MONO % 10.5 % (3.8-10.2); NEUT % 68.8 % (42.8-82.8); PLATELET COUNT 427 10^3/uL (134-434); RBC 3.85 M/mm3 (4.00-5.60); RDW 14.8 % (11.9-15.9); WHITE BLOOD COUNT 7.7 K/mm3 (4.0-10.0)
[2020-12-04] MEDS ORDERED: VANCOMYCIN 1 GRAM (PRE-DOCKED) 1,000 MG/250 ML BAG IVPB ONE (15:11)
[2020-12-04 15:12] LABS: INR 1.28 (0.83-1.09); PROTHROMBIN TIME (PATIENT) 15.6 SEC (9.7-13.0)
[2020-12-04 15:14] LABS: ACTIVATED PTT 32.6 SECONDS (25.2-36.5)
[2020-12-04 15:31] LABS: ALBUMIN 3.6 g/dl (3.4-5.0); CALCIUM 9.4 mg/dL (8.5-10.1)
[2020-12-04 15:32] LABS: BLOOD UREA NITROGEN 13.6 mg/dL (7-18)
[2020-12-04 15:36] LABS: BILIRUBIN,TOTAL 0.6 mg/dL (0.2-1); TOT PROT 7.4 g/dl (6.4-8.2)
[2020-12-04] MEDS ORDERED: PANTOPRAZOLE 40 MG TABLET PO ONE (16:31)
[2020-12-04] MEDS ORDERED: HYDROmorphone HCl 2 MG/ML VIAL IVPUSH PRN (17:55)
[2020-12-04] MEDS ORDERED: PANTOPRAZOLE 20 MG TABLET PO ONE (20:59)
[2020-12-04] MEDS ORDERED: MAG HYDROX/AL HYDROX/SIMETH 30 ML UNIT-DOSE CUP PO ONE (21:01)
[2020-12-04] MEDS ORDERED: MORPHINE SULFATE 2 MG/ML VIAL IVPUSH ONE (21:11)
[2020-12-04] MEDS ORDERED: TRIMETHOBENZAMIDE HCL 300 MG CAPSULE PO ONE (21:22)
[2020-12-04] MEDS: ATORVASTATIN CA 40 MG TABLET (FP) PO SCH ×2 (21:26→21:27)
[2020-12-04] MEDS ORDERED: PT OWN MED DRAWER 7, Y5N ONE (22:36)
[2020-12-04] MEDS: AMPICILLIN NA/SULBACTAM NA 3 GM in SODIUM CHLORIDE 100 ML IVPB SCH (22:50)
[2020-12-05] MEDS ORDERED: MORPHINE SULFATE 2 MG/ML VIAL IVPUSH ONE (05:02)
[2020-12-05] MEDS ORDERED: MORPHINE SULFATE 2 MG/ML VIAL IVPUSH PRN (08:56)
[2020-12-05] MEDS ORDERED: HYDROmorphone HCl 2 MG/ML VIAL IVPB PRN ×4 (09:25→18:41)
[2020-12-05 09:27] LABS: BASO % 1.5 % (0-2.0); EOS % 10.7 % (0-4.5); HEMATOCRIT 30.9 % (35.4-49); HEMOGLOBIN 10.6 GM/dL (11.7-16.9); LYMPH % 18.1 % (8-40); MCH 31.6 pg (25.7-33.7); MCHC 34.3 g/dl (32.0-35.9); MEAN CELL VOLUME 92.2 fl (80-96); MEAN PLT VOLUME 8.3 fl (7.5-11.1); MONO % 12.4 % (3.8-10.2); NEUT % 57.3 % (42.8-82.8); PLATELET COUNT 357 10^3/uL (134-434); RBC 3.35 M/mm3 (4.00-5.60); RDW 15.3 % (11.9-15.9)
[2020-12-05] MEDS ORDERED: PT OWN MED DRAWER 7, Y5N ONE (09:31)
[2020-12-05 09:57] LABS: CALCIUM 8.5 mg/dL (8.5-10.1)
[2020-12-05 09:58] LABS: ALBUMIN 3.1 g/dl (3.4-5.0); BLOOD UREA NITROGEN 11.9 mg/dL (7-18); MAGNESIUM 2.2 mg/dL (1.8-2.4)
[2020-12-05 10:00] LABS: BILIRUBIN,TOTAL 0.5 mg/dL (0.2-1); TOT PROT 6.4 g/dl (6.4-8.2)
[2020-12-05] MEDS ORDERED: VERAPAMIL HCL 120 MG E.R. TABLET PO SCH (10:00)
[2020-12-05] MEDS ORDERED: ENOXAPARIN NA (PORCINE) 40 MG/0.4 ML DISP.SYRIN SQ SCH (10:00)
[2020-12-05 10:01] LABS: CREATININE 0.8 mg/dL (0.55-1.3)
[2020-12-05] MEDS: AMPICILLIN NA/SULBACTAM NA 3 GM in SODIUM CHLORIDE 100 ML IVPB SCH ×2 (10:30→12:06)
[2020-12-05] MEDS ORDERED: VANCOMYCIN PREMIX 1.5 GM 1,500 MG/300 ML BAG IVPB SCH (16:00)
[2020-12-05] MEDS ORDERED: DEXMEDETOMIDINE HCL 200 MCG/2 ML IVPB ONE (16:38)
[2020-12-05] MEDS ORDERED: ACETAMINOPHEN INJECTION 100 ML IVPB ONE (16:47)
[2020-12-05] MEDS ORDERED: LIDOCAINE HCL/PF 2% SDV 5ML VIAL ONE (16:56)
[2020-12-05] MEDS ORDERED: LIDOCAINE HCL 2% JELLY (5 ML/TUBE) ONE (16:56)
[2020-12-05] MEDS ORDERED: PROPOFOL 20 ML ONE ×2 (16:57)
[2020-12-05] MEDS ORDERED: MIDAZOLAM HCL 2 MG/2 ML SINGLE DOSE VIAL ONE (17:01)
[2020-12-05] MEDS ORDERED: VANCOMYCIN 1,000 MG VIAL (RESTRICTED TO ID ONLY) IVPB ONE (17:22)
[2020-12-05] MEDS ORDERED: ceFAZolin SODIUM 1 GM VIAL IVPB ONE (17:22)
[2020-12-05] MEDS ORDERED: ceFAZolin SODIUM 1 GM VIAL ONE (17:35)
[2020-12-05] MEDS ORDERED: PIPERACILLIN/TAZOB 3.375 GM 3.375 GM in DEXTROSE 5%-WATER - 50 ML IVPB SCH (18:00)
[2020-12-05] MEDS ORDERED: HYDROmorphone *PCA* 10MG/50ML DISP.SYRIN PCA SCH (18:15)
[2020-12-05] MEDS ORDERED: ONDANSETRON 4 MG/2 ML VIAL IVPUSH PRN (18:16)
[2020-12-05] MEDS ORDERED: HYDROmorphone *PCA* 10MG/50ML DISP.SYRIN ONE (18:25)
[2020-12-05] MEDS: HYDROmorphone *PCA* 10MG/50ML DISP.SYRIN PCA SCH ×2 (18:30→23:08)
[2020-12-05] MEDS ORDERED: PANTOPRAZOLE 40 MG TABLET PO ONE (18:41)
[2020-12-05] MEDS: DOCUSATE SODIUM 100 MG CAPSULE (FP) PO SCH (21:37)
[2020-12-05] MEDS: ASPIRIN 81 MG CHEWABLE TABLETS PO SCH (21:37)
[2020-12-05] MEDS: ATORVASTATIN CA 40 MG TABLET (FP) PO SCH (21:37)
[2020-12-05] MEDS: oxyCODONE HCL 5 MG TABLET PO SCH (21:42)
[2020-12-05] MEDS ORDERED: DOCUSATE SODIUM 100 MG CAPSULE (FP) PO SCH (22:00)
[2020-12-06 09:37] LABS: BASO % 1.2 % (0-2.0); EOS % 11.5 % (0-4.5); HEMATOCRIT 32.8 % (35.4-49); HEMOGLOBIN 10.9 GM/dL (11.7-16.9); LYMPH % 24.8 % (8-40); MCHC 33.3 g/dl (32.0-35.9); MEAN PLT VOLUME 8.2 fl (7.5-11.1); MONO % 9.7 % (3.8-10.2); NEUT % 52.8 % (42.8-82.8); PLATELET COUNT 333 10^3/uL (134-434); RBC 3.53 M/mm3 (4.00-5.60); RDW 15.2 % (11.9-15.9); WHITE BLOOD COUNT 4.5 K/mm3 (4.0-10.0)
[2020-12-06] MEDS ORDERED: PT OWN MED DRAWER 7, Y5N ONE (09:38)
[2020-12-06 09:46] LABS: CALCIUM 8.7 mg/dL (8.5-10.1)
[2020-12-06] MEDS: VERAPAMIL HCL 120 MG E.R. TABLET PO SCH (09:46)
[2020-12-06] MEDS: DOCUSATE SODIUM 100 MG CAPSULE (FP) PO SCH ×2 (09:46→21:47)
[2020-12-06] MEDS: oxyCODONE HCL 5 MG TABLET PO SCH (09:46)
[2020-12-06] MEDS: ASPIRIN 81 MG CHEWABLE TABLETS PO SCH ×2 (09:46→21:47)
[2020-12-06 09:47] LABS: ALBUMIN 3.5 g/dl (3.4-5.0); BLOOD UREA NITROGEN 13.3 mg/dL (7-18); MAGNESIUM 2.3 mg/dL (1.8-2.4)
[2020-12-06 09:51] LABS: BILIRUBIN,TOTAL 0.4 mg/dL (0.2-1); TOT PROT 7.2 g/dl (6.4-8.2)
[2020-12-06] MEDS ORDERED: POLYETHYLENE GLYCOL (HEALTHYLAX) 3350 17 GM PACKET PO SCH (10:00)
[2020-12-06] MEDS ORDERED: PIPERACILLIN/TAZOBACTAM 3.375 GM VIAL IVPB ONE ×2 (11:39→17:01)
[2020-12-06] MEDS ORDERED: DEXTROSE 5%-WATER - 50 ML IVPB ONE ×2 (11:40→17:01)
[2020-12-06] MEDS: PIPERACILLIN/TAZOB 3.375 GM 3.375 GM in DEXTROSE 5%-WATER - 50 ML IVPB SCH ×2 (11:46→17:14)
[2020-12-06] MEDS ORDERED: VANCOMYCIN PREMIX 1.5 GM 1,500 MG/300 ML BAG IVPB SCH (16:00)
[2020-12-06] MEDS ORDERED: PCA PUMP NR ONE (17:57)
[2020-12-06] MEDS: HYDROmorphone *PCA* 10MG/50ML DISP.SYRIN PCA SCH (17:58)
[2020-12-06] MEDS: ATORVASTATIN CA 40 MG TABLET (FP) PO SCH (21:47)
[2020-12-07] MEDS ORDERED: PIPERACILLIN/TAZOBACTAM 3.375 GM VIAL IVPB ONE ×3 (01:47→17:00)
[2020-12-07] MEDS ORDERED: DEXTROSE 5%-WATER - 50 ML IVPB ONE ×3 (01:47→17:00)
[2020-12-07] MEDS: PIPERACILLIN/TAZOB 3.375 GM 3.375 GM in DEXTROSE 5%-WATER - 50 ML IVPB SCH ×3 (02:06→17:06)
[2020-12-07 08:45] LABS: BASO % 1.4 % (0-2.0); EOS % 11.4 % (0-4.5); HEMATOCRIT 31.5 % (35.4-49); HEMOGLOBIN 10.6 GM/dL (11.7-16.9); LYMPH % 21.5 % (8-40); MCH 31.1 pg (25.7-33.7); MCHC 33.7 g/dl (32.0-35.9); MEAN CELL VOLUME 92.5 fl (80-96); MEAN PLT VOLUME 8.1 fl (7.5-11.1); MONO % 12.2 % (3.8-10.2); NEUT % 53.5 % (42.8-82.8); PLATELET COUNT 298 10^3/uL (134-434); RBC 3.41 M/mm3 (4.00-5.60); RDW 14.8 % (11.9-15.9); WHITE BLOOD COUNT 5.2 K/mm3 (4.0-10.0)
[2020-12-07 08:59] LABS: CALCIUM 8.8 mg/dL (8.5-10.1)
[2020-12-07 09:00] LABS: ALBUMIN 3.4 g/dl (3.4-5.0); BLOOD UREA NITROGEN 14.8 mg/dL (7-18); MAGNESIUM 2.3 mg/dL (1.8-2.4)
[2020-12-07 09:05] LABS: BILIRUBIN,TOTAL 0.3 mg/dL (0.2-1); TOT PROT 6.8 g/dl (6.4-8.2)
[2020-12-07] MEDS ORDERED: PT OWN MED DRAWER 7, Y5N ONE (09:14)
[2020-12-07] MEDS: DOCUSATE SODIUM 100 MG CAPSULE (FP) PO SCH ×2 (09:23→22:33)
[2020-12-07] MEDS: ASPIRIN 81 MG CHEWABLE TABLETS PO SCH ×2 (09:23→22:33)
[2020-12-07] MEDS: VERAPAMIL HCL 120 MG E.R. TABLET PO SCH (09:23)
[2020-12-07] MEDS ORDERED: VANCOMYCIN HCL 1,500 MG in DEXTROSE 5%-WATER - 500 ML IVPB ONE (11:45)
[2020-12-07] MEDS ORDERED: VANCOMYCIN PREMIX 1.5 GM 1,500 MG/300 ML BAG IVPB ONE (12:15)
[2020-12-07] MEDS ORDERED: PCA PUMP NR ONE ×2 (13:14→22:46)
[2020-12-07] MEDS: HYDROmorphone *PCA* 10MG/50ML DISP.SYRIN PCA SCH (13:15)
[2020-12-07] MEDS: ATORVASTATIN CA 40 MG TABLET (FP) PO SCH (22:33)
[2020-12-08] MEDS ORDERED: PIPERACILLIN/TAZOBACTAM 3.375 GM VIAL IVPB ONE ×3 (01:56→17:32)
[2020-12-08] MEDS ORDERED: DEXTROSE 5%-WATER - 50 ML IVPB ONE ×3 (01:57→17:33)
[2020-12-08] MEDS: PIPERACILLIN/TAZOB 3.375 GM 3.375 GM in DEXTROSE 5%-WATER - 50 ML IVPB SCH ×3 (02:01→17:36)
[2020-12-08 09:12] LABS: BASO % 1.5 % (0-2.0); EOS % 11.6 % (0-4.5); HEMATOCRIT 31.5 % (35.4-49); HEMOGLOBIN 10.8 GM/dL (11.7-16.9); LYMPH % 18.1 % (8-40); MCH 31.7 pg (25.7-33.7); MCHC 34.3 g/dl (32.0-35.9); MEAN CELL VOLUME 92.6 fl (80-96); MEAN PLT VOLUME 8.6 fl (7.5-11.1); MONO % 9.3 % (3.8-10.2); NEUT % 59.5 % (42.8-82.8); PLATELET COUNT 292 10^3/uL (134-434); RDW 14.8 % (11.9-15.9)
[2020-12-08] MEDS: ASPIRIN 81 MG CHEWABLE TABLETS PO SCH ×2 (09:36→22:08)
[2020-12-08] MEDS: VERAPAMIL HCL 120 MG E.R. TABLET PO SCH (09:36)
[2020-12-08] MEDS: DOCUSATE SODIUM 100 MG CAPSULE (FP) PO SCH ×2 (09:36→22:08)
[2020-12-08 10:01] LABS: ALBUMIN 3.4 g/dl (3.4-5.0); CALCIUM 8.6 mg/dL (8.5-10.1)
[2020-12-08 10:02] LABS: MAGNESIUM 2.1 mg/dL (1.8-2.4)
[2020-12-08 10:04] LABS: CREATININE 1.1 mg/dL (0.55-1.3)
[2020-12-08 10:06] LABS: TOT PROT 6.9 g/dl (6.4-8.2)
[2020-12-08 10:07] LABS: BILIRUBIN,TOTAL 0.4 mg/dL (0.2-1)
[2020-12-08] MEDS ORDERED: VANCOMYCIN PREMIX 1.5 GM 1,500 MG/300 ML BAG IVPB SCH (13:00)
[2020-12-08] MEDS: POLYETHYLENE GLYCOL (HEALTHYLAX) 3350 17 GM PACKET PO SCH (14:40)
[2020-12-08] MEDS: HYDROmorphone *PCA* 10MG/50ML DISP.SYRIN PCA SCH (17:44)
[2020-12-08] MEDS: ATORVASTATIN CA 40 MG TABLET (FP) PO SCH (22:08)
[2020-12-09] MEDS ORDERED: PIPERACILLIN/TAZOBACTAM 3.375 GM VIAL IVPB ONE ×2 (01:59→18:21)
[2020-12-09] MEDS ORDERED: DEXTROSE 5%-WATER - 50 ML IVPB ONE ×2 (02:00→18:21)
[2020-12-09] MEDS: PIPERACILLIN/TAZOB 3.375 GM 3.375 GM in DEXTROSE 5%-WATER - 50 ML IVPB SCH ×2 (02:01→18:23)
[2020-12-09] MEDS ORDERED: SUCCINYLCHOLINE CHLORIDE 200 MG/10 ML SYRINGE ONE (06:59)
[2020-12-09] MEDS ORDERED: PROPOFOL 20 ML ONE ×2 (06:59)
[2020-12-09] MEDS ORDERED: ROCURONIUM BROMIDE 100 MG/10 ML VIAL ONE (06:59)
[2020-12-09] MEDS ORDERED: DEXMEDETOMIDINE HCL 200 MCG/2 ML IVPB ONE (07:13)
[2020-12-09] MEDS ORDERED: ACETAMINOPHEN INJECTION 100 ML IVPB ONE (07:13)
[2020-12-09] MEDS ORDERED: MINERAL OIL/PETROLATUM,WHITE 3.5 GM TUBE ONE (07:23)
[2020-12-09 07:47] LABS: HEMATOCRIT 29.8 % (35.4-49); HEMOGLOBIN 10.1 GM/dL (11.7-16.9); LYMPH % 17.8 % (8-40); MCH 31.1 pg (25.7-33.7); MEAN CELL VOLUME 91.6 fl (80-96); MEAN PLT VOLUME 8.2 fl (7.5-11.1); MONO % 15.3 % (3.8-10.2); NEUT % 51.9 % (42.8-82.8); PLATELET COUNT 248 10^3/uL (134-434); RBC 3.25 M/mm3 (4.00-5.60); RDW 14.5 % (11.9-15.9); WHITE BLOOD COUNT 4.7 K/mm3 (4.0-10.0)
[2020-12-09 07:52] LABS: INR 1.27 (0.83-1.09); PROTHROMBIN TIME (PATIENT) 15.5 SEC (9.7-13.0)
[2020-12-09 08:08] LABS: CALCIUM 8.5 mg/dL (8.5-10.1)
[2020-12-09 08:09] LABS: ALBUMIN 3.1 g/dl (3.4-5.0); BLOOD UREA NITROGEN 13.1 mg/dL (7-18); MAGNESIUM 2.5 mg/dL (1.8-2.4)
[2020-12-09 08:12] LABS: CREATININE 0.9 mg/dL (0.55-1.3)
[2020-12-09 08:13] LABS: BILIRUBIN,TOTAL 0.4 mg/dL (0.2-1); TOT PROT 6.3 g/dl (6.4-8.2)
[2020-12-09] MEDS ORDERED: HYDROmorphone HCl 2 MG/ML VIAL ONE ×2 (09:56→12:22)
[2020-12-09] MEDS ORDERED: KETAMINE HCL 200 MG/20 ML VIAL ONE (09:56)
[2020-12-09] MEDS ORDERED: MIDAZOLAM HCL 2 MG/2 ML SINGLE DOSE VIAL ONE (09:56)
[2020-12-09] MEDS ORDERED: SEVOFLURANE 250 ML BTL ONE (10:14)
[2020-12-09] MEDS ORDERED: DESFLURANE GAS 240 ML BOTTLE IH ONE (10:14)
[2020-12-09] MEDS: VERAPAMIL HCL 120 MG E.R. TABLET PO SCH (10:38)
[2020-12-09] MEDS: POLYETHYLENE GLYCOL (HEALTHYLAX) 3350 17 GM PACKET PO SCH (10:38)
[2020-12-09] MEDS: DOCUSATE SODIUM 100 MG CAPSULE (FP) PO SCH ×2 (10:38→21:53)
[2020-12-09] MEDS: ASPIRIN 81 MG CHEWABLE TABLETS PO SCH (10:38)
[2020-12-09] MEDS ORDERED: ONDANSETRON 4 MG/2 ML VIAL ONE (10:44)
[2020-12-09] MEDS ORDERED: DEXAMETHASONE SOD PHOSPHATE 4 MG/1 ML VIAL ONE (10:44)
[2020-12-09] MEDS ORDERED: ONDANSETRON 4 MG/2 ML VIAL IVPUSH PRN ×4 (12:04→17:48)
[2020-12-09] MEDS ORDERED: MAG HYDROX/AL HYDROX/SIMETH 30 ML UNIT-DOSE CUP PO PRN (12:04)
[2020-12-09] MEDS ORDERED: MAGNESIUM HYDROX 2400MG/30ML ORAL SUSPENSION 30 ML CUP PO PRN (12:04)
[2020-12-09] MEDS ORDERED: LACTATED RINGERS SOLUTION 1,000 ML IV SCH (12:15)
[2020-12-09] MEDS ORDERED: HYDROmorphone HCl 2 MG/ML VIAL IVPUSH ONE ×2 (12:20→13:08)
[2020-12-09] MEDS ORDERED: HYDROmorphone *PCA* 10MG/50ML DISP.SYRIN PCA SCH (12:20)
[2020-12-09] MEDS ORDERED: HYDROmorphone *PCA* 10MG/50ML DISP.SYRIN PCA ONE (12:35)
[2020-12-09] MEDS ORDERED: DEXAMETHASONE SOD PHOSPHATE 4 MG/1 ML VIAL IVPUSH PRN ×2 (12:47→17:48)
[2020-12-09] MEDS ORDERED: PROMETHAZINE HCL 25 MG/1 ML VIAL IVPB PRN ×2 (12:47→17:48)
[2020-12-09] MEDS ORDERED: PROMETHAZINE HCL 25 MG/1 ML VIAL IVPUSH PRN (12:47)
[2020-12-09] MEDS ORDERED: HYDROmorphone *PCA* 10MG/50ML DISP.SYRIN PCA PRN (13:00)
[2020-12-09] MEDS: VANCOMYCIN PREMIX 1.5 GM 1,500 MG/300 ML BAG IVPB SCH (13:27)
[2020-12-09] MEDS: LACTATED RINGERS SOLUTION 1,000 ML IV SCH (13:27)
[2020-12-09] MEDS: GABAPENTIN 300 MG CAPSULE PO SCH ×2 (16:28→21:53)
[2020-12-09] MEDS: LIDOCAINE 5% TOPICAL PATCH TP SCH (16:28)
[2020-12-09] MEDS: HYDROmorphone *PCA* 10MG/50ML DISP.SYRIN PCA SCH ×2 (18:04→18:05)
[2020-12-09] MEDS ORDERED: PCA PUMP NR ONE (21:45)
[2020-12-09] MEDS: SENNOSIDES/DOCUSATE COMBO (SENNA PLUS) TABLET (UD) PO SCH (21:53)
[2020-12-09] MEDS: ATORVASTATIN CA 40 MG TABLET (FP) PO SCH (21:53)
[2020-12-09] MEDS: LIDOCAINE PATCH REMOVAL MC SCH (21:56)
[2020-12-09] MEDS: ASPIRIN COATED 81 MG TABLET.EC PO SCH (21:57)
[2020-12-09] MEDS ORDERED: ASPIRIN 325 MG TABLET PO SCH (22:00)
[2020-12-10] MEDS ORDERED: PIPERACILLIN/TAZOBACTAM 3.375 GM VIAL IVPB ONE ×3 (02:11→17:58)
[2020-12-10] MEDS ORDERED: DEXTROSE 5%-WATER - 50 ML IVPB ONE ×3 (02:11→17:59)
[2020-12-10] MEDS: PIPERACILLIN/TAZOB 3.375 GM 3.375 GM in DEXTROSE 5%-WATER - 50 ML IVPB SCH ×4 (02:14→22:31)
[2020-12-10] MEDS: LACTATED RINGERS SOLUTION 1,000 ML IV SCH (05:35)
[2020-12-10] MEDS: GABAPENTIN 300 MG CAPSULE PO SCH ×3 (06:45→21:26)
[2020-12-10] MEDS ORDERED: PCA PUMP NR ONE ×2 (08:10→13:08)
[2020-12-10 09:17] LABS: BASO % 0.9 % (0-2.0); EOS % 2.7 % (0-4.5); HEMATOCRIT 31.1 % (35.4-49); HEMOGLOBIN 10.6 GM/dL (11.7-16.9); LYMPH % 19.3 % (8-40); MCH 31.8 pg (25.7-33.7); MCHC 33.9 g/dl (32.0-35.9); MEAN CELL VOLUME 93.6 fl (80-96); MEAN PLT VOLUME 8.7 fl (7.5-11.1); MONO % 12.5 % (3.8-10.2); NEUT % 64.6 % (42.8-82.8); PLATELET COUNT 297 10^3/uL (134-434); RBC 3.32 M/mm3 (4.00-5.60); RDW 15.1 % (11.9-15.9)
[2020-12-10 10:08] LABS: ALBUMIN 3.7 g/dl (3.4-5.0); BLOOD UREA NITROGEN 13.6 mg/dL (7-18); CALCIUM 9.1 mg/dL (8.5-10.1); MAGNESIUM 2.5 mg/dL (1.8-2.4)
[2020-12-10 10:12] LABS: BILIRUBIN,TOTAL 0.4 mg/dL (0.2-1); TOT PROT 7.3 g/dl (6.4-8.2)
[2020-12-10] MEDS: LIDOCAINE 5% TOPICAL PATCH TP SCH (11:35)
[2020-12-10] MEDS: SENNOSIDES/DOCUSATE COMBO (SENNA PLUS) TABLET (UD) PO SCH ×2 (11:36→21:26)
[2020-12-10] MEDS: PANTOPRAZOLE 40 MG TABLET PO SCH (11:36)
[2020-12-10] MEDS: ASPIRIN COATED 81 MG TABLET.EC PO SCH ×2 (11:36→21:26)
[2020-12-10] MEDS: DOCUSATE SODIUM 100 MG CAPSULE (FP) PO SCH ×2 (11:36→21:26)
[2020-12-10] MEDS: POLYETHYLENE GLYCOL (HEALTHYLAX) 3350 17 GM PACKET PO SCH (11:37)
[2020-12-10] MEDS ORDERED: PT OWN MED DRAWER 7, Y5N ONE ×3 (11:40→13:30)
[2020-12-10] MEDS: oxyCODONE HCL 5 MG TABLET PO PRN ×2 (11:44→21:25)
[2020-12-10] MEDS: VERAPAMIL HCL 120 MG E.R. TABLET PO SCH (12:39)
[2020-12-10] MEDS: VANCOMYCIN PREMIX 1.5 GM 1,500 MG/300 ML BAG IVPB SCH (13:31)
[2020-12-10] MEDS: ATORVASTATIN CA 40 MG TABLET (FP) PO SCH (21:26)
[2020-12-10] MEDS: LIDOCAINE PATCH REMOVAL MC SCH (21:27)
[2020-12-11] MEDS ORDERED: DEXTROSE 5%-WATER - 50 ML IVPB ONE ×3 (02:08→18:35)
[2020-12-11] MEDS ORDERED: PIPERACILLIN/TAZOBACTAM 3.375 GM VIAL IVPB ONE ×3 (02:08→18:35)
[2020-12-11] MEDS: PIPERACILLIN/TAZOB 3.375 GM 3.375 GM in DEXTROSE 5%-WATER - 50 ML IVPB SCH ×3 (02:28→18:43)
[2020-12-11] MEDS: oxyCODONE HCL 5 MG TABLET PO PRN ×3 (03:54→18:46)
[2020-12-11] MEDS: GABAPENTIN 300 MG CAPSULE PO SCH ×3 (06:15→21:57)
[2020-12-11 08:59] LABS: BASO % 1.4 % (0-2.0); EOS % 12.3 % (0-4.5); HEMATOCRIT 27.3 % (35.4-49); HEMOGLOBIN 9.2 GM/dL (11.7-16.9); LYMPH % 23.5 % (8-40); MCH 31.2 pg (25.7-33.7); MCHC 33.7 g/dl (32.0-35.9); MEAN CELL VOLUME 92.7 fl (80-96); MEAN PLT VOLUME 8.8 fl (7.5-11.1); MONO % 10.4 % (3.8-10.2); NEUT % 52.4 % (42.8-82.8); PLATELET COUNT 233 10^3/uL (134-434); RBC 2.95 M/mm3 (4.00-5.60); RDW 14.9 % (11.9-15.9); WHITE BLOOD COUNT 5.3 K/mm3 (4.0-10.0)
[2020-12-11 09:18] LABS: CALCIUM 8.4 mg/dL (8.5-10.1)
[2020-12-11 09:19] LABS: BLOOD UREA NITROGEN 12.1 mg/dL (7-18)
[2020-12-11 09:25] LABS: BILIRUBIN,TOTAL 0.2 mg/dL (0.2-1)
[2020-12-11] MEDS ORDERED: PT OWN MED DRAWER 7, Y5N ONE (10:13)
[2020-12-11] MEDS: LIDOCAINE 5% TOPICAL PATCH TP SCH (10:22)
[2020-12-11] MEDS: DOCUSATE SODIUM 100 MG CAPSULE (FP) PO SCH ×2 (10:22→21:57)
[2020-12-11] MEDS: PANTOPRAZOLE 40 MG TABLET PO SCH (10:22)
[2020-12-11] MEDS: ASPIRIN COATED 81 MG TABLET.EC PO SCH ×2 (10:23→21:57)
[2020-12-11] MEDS: POLYETHYLENE GLYCOL (HEALTHYLAX) 3350 17 GM PACKET PO SCH (10:23)
[2020-12-11] MEDS: SENNOSIDES/DOCUSATE COMBO (SENNA PLUS) TABLET (UD) PO SCH ×2 (10:23→21:57)
[2020-12-11] MEDS: VERAPAMIL HCL 120 MG E.R. TABLET PO SCH (10:23)
[2020-12-11] MEDS: VANCOMYCIN PREMIX 1.5 GM 1,500 MG/300 ML BAG IVPB SCH (13:56)
[2020-12-11] MEDS: ATORVASTATIN CA 40 MG TABLET (FP) PO SCH (21:57)
[2020-12-11] MEDS: LIDOCAINE PATCH REMOVAL MC SCH (21:57)
[2020-12-12] MEDS: oxyCODONE HCL 5 MG TABLET PO PRN ×3 (00:20→21:37)
[2020-12-12] MEDS ORDERED: DEXTROSE 5%-WATER - 50 ML IVPB ONE ×4 (02:14→21:27)
[2020-12-12] MEDS ORDERED: PIPERACILLIN/TAZOBACTAM 3.375 GM VIAL IVPB ONE ×4 (02:14→21:27)
[2020-12-12] MEDS: PIPERACILLIN/TAZOB 3.375 GM 3.375 GM in DEXTROSE 5%-WATER - 50 ML IVPB SCH ×3 (02:36→18:30)
[2020-12-12] MEDS: GABAPENTIN 300 MG CAPSULE PO SCH ×3 (05:48→21:35)
[2020-12-12 07:51] LABS: BASO % 1.5 % (0-2.0); EOS % 12.8 % (0-4.5); HEMATOCRIT 28.1 % (35.4-49); HEMOGLOBIN 9.6 GM/dL (11.7-16.9); LYMPH % 20.5 % (8-40); MCH 31.2 pg (25.7-33.7); MCHC 34.2 g/dl (32.0-35.9); MEAN CELL VOLUME 91.1 fl (80-96); MEAN PLT VOLUME 8.7 fl (7.5-11.1); MONO % 14.2 % (3.8-10.2); PLATELET COUNT 231 10^3/uL (134-434); RBC 3.09 M/mm3 (4.00-5.60); RDW 14.3 % (11.9-15.9); WHITE BLOOD COUNT 5.6 K/mm3 (4.0-10.0)
[2020-12-12 08:18] LABS: BLOOD UREA NITROGEN 14.1 mg/dL (7-18); CALCIUM 8.4 mg/dL (8.5-10.1); MAGNESIUM 2.2 mg/dL (1.8-2.4)
[2020-12-12] MEDS ORDERED: IBUPROFEN 800 MG/8 ML IJ IVPB ONE (08:18)
[2020-12-12 08:23] LABS: BILIRUBIN,TOTAL 0.3 mg/dL (0.2-1)
[2020-12-12] MEDS ORDERED: PT OWN MED DRAWER 7, Y5N ONE ×2 (10:28→14:19)
[2020-12-12] MEDS: DOCUSATE SODIUM 100 MG CAPSULE (FP) PO SCH ×2 (10:36→21:35)
[2020-12-12] MEDS: PANTOPRAZOLE 40 MG TABLET PO SCH (10:36)
[2020-12-12] MEDS: SENNOSIDES/DOCUSATE COMBO (SENNA PLUS) TABLET (UD) PO SCH ×2 (10:36→21:34)
[2020-12-12] MEDS: ASPIRIN COATED 81 MG TABLET.EC PO SCH ×2 (10:37→21:35)
[2020-12-12] MEDS: LIDOCAINE 5% TOPICAL PATCH TP SCH (10:37)
[2020-12-12] MEDS: POLYETHYLENE GLYCOL (HEALTHYLAX) 3350 17 GM PACKET PO SCH (10:37)
[2020-12-12] MEDS: VERAPAMIL HCL 120 MG E.R. TABLET PO SCH (10:37)
[2020-12-12] MEDS ORDERED: valACYclovir HCL 1000 MG TABLET PO SCH (11:45)
[2020-12-12] MEDS ORDERED: valACYclovir HCL 500 MG TABLET (FP) ONE (14:19)
[2020-12-12] MEDS: VANCOMYCIN PREMIX 1.5 GM 1,500 MG/300 ML BAG IVPB SCH (14:21)
[2020-12-12] MEDS ORDERED: ACETAMINOPHEN INJECTION 100 ML IVPB ONE (15:44)
[2020-12-12] MEDS ORDERED: MIDAZOLAM HCL 2 MG/2 ML SINGLE DOSE VIAL ONE (15:56)
[2020-12-12] MEDS ORDERED: HYDROmorphone HCl 2 MG/ML VIAL ONE (15:56)
[2020-12-12] MEDS ORDERED: PROPOFOL 20 ML ONE ×2 (15:56)
[2020-12-12] MEDS ORDERED: SUCCINYLCHOLINE CHLORIDE 200 MG/10 ML SYRINGE ONE (15:58)
[2020-12-12] MEDS ORDERED: KETAMINE HCL 200 MG/20 ML VIAL ONE (16:02)
[2020-12-12] MEDS ORDERED: LIDOCAINE HCL/PF 2% SDV 5ML VIAL ONE (16:05)
[2020-12-12] MEDS ORDERED: ONDANSETRON 4 MG/2 ML VIAL IVPUSH PRN (17:38)
[2020-12-12] MEDS ORDERED: MAG HYDROX/AL HYDROX/SIMETH 30 ML UNIT-DOSE CUP PO PRN (17:38)
[2020-12-12] MEDS ORDERED: PROMETHAZINE HCL 25 MG/1 ML VIAL IVPB PRN (17:38)
[2020-12-12] MEDS ORDERED: MAGNESIUM HYDROX 2400MG/30ML ORAL SUSPENSION 30 ML CUP PO PRN (17:38)
[2020-12-12] MEDS: ATORVASTATIN CA 40 MG TABLET (FP) PO SCH (21:34)
[2020-12-12] MEDS: LIDOCAINE PATCH REMOVAL MC SCH (21:35)
[2020-12-12] MEDS ORDERED: LIDOCAINE PATCH REMOVAL MC SCH (22:00)
[2020-12-13] MEDS ORDERED: PIPERACILLIN/TAZOBACTAM 3.375 GM VIAL IVPB ONE ×3 (02:03→18:17)
[2020-12-13] MEDS ORDERED: DEXTROSE 5%-WATER - 50 ML IVPB ONE ×3 (02:03→18:17)
[2020-12-13] MEDS: PIPERACILLIN/TAZOB 3.375 GM 3.375 GM in DEXTROSE 5%-WATER - 50 ML IVPB SCH ×3 (02:05→18:21)
[2020-12-13] MEDS: GABAPENTIN 300 MG CAPSULE PO SCH ×3 (06:26→21:37)
[2020-12-13 08:44] LABS: BASO % 0.5 % (0-2.0); EOS % 0.4 % (0-4.5); HEMATOCRIT 32.6 % (35.4-49); HEMOGLOBIN 11.2 GM/dL (11.7-16.9); LYMPH % 13.5 % (8-40); MCH 31.6 pg (25.7-33.7); MCHC 34.3 g/dl (32.0-35.9); MEAN CELL VOLUME 92.3 fl (80-96); NEUT % 75.6 % (42.8-82.8); PLATELET COUNT 302 10^3/uL (134-434); RBC 3.53 M/mm3 (4.00-5.60); RDW 14.6 % (11.9-15.9); WHITE BLOOD COUNT 6.3 K/mm3 (4.0-10.0)
[2020-12-13] MEDS: oxyCODONE HCL 5 MG TABLET PO PRN ×3 (08:55→22:58)
[2020-12-13 09:13] LABS: MAGNESIUM 2.3 mg/dL (1.8-2.4)
[2020-12-13 09:16] LABS: CREATININE 1.2 mg/dL (0.55-1.3)
[2020-12-13 09:18] LABS: BILIRUBIN,TOTAL 0.4 mg/dL (0.2-1); TOT PROT 7.6 g/dl (6.4-8.2)
[2020-12-13 09:24] LABS: ALBUMIN 3.8 g/dl (3.4-5.0)
[2020-12-13] MEDS ORDERED: PT OWN MED DRAWER 7, Y5N ONE ×2 (09:39→13:02)
[2020-12-13] MEDS: LIDOCAINE 5% TOPICAL PATCH TP SCH (09:46)
[2020-12-13] MEDS: DOCUSATE SODIUM 100 MG CAPSULE (FP) PO SCH ×2 (09:46→21:37)
[2020-12-13] MEDS: POLYETHYLENE GLYCOL (HEALTHYLAX) 3350 17 GM PACKET PO SCH (09:46)
[2020-12-13] MEDS: SENNOSIDES/DOCUSATE COMBO (SENNA PLUS) TABLET (UD) PO SCH ×2 (09:47→21:36)
[2020-12-13] MEDS: VERAPAMIL HCL 120 MG E.R. TABLET PO SCH (09:47)
[2020-12-13] MEDS: ASPIRIN COATED 81 MG TABLET.EC PO SCH ×2 (09:47→21:36)
[2020-12-13] MEDS: PANTOPRAZOLE 40 MG TABLET PO SCH (09:47)
[2020-12-13] MEDS ORDERED: VANCOMYCIN PREMIX 1.5 GM 1,500 MG/300 ML BAG IVPB SCH (13:00)
[2020-12-13] MEDS: LIDOCAINE PATCH REMOVAL MC SCH (21:37)
[2020-12-13] MEDS: ATORVASTATIN CA 40 MG TABLET (FP) PO SCH (21:38)
[2020-12-14] MEDS: VANCOMYCIN/WATER BAGS 1,250 MG/250 ML BAG IVPB SCH ×2 (00:39→13:29)
[2020-12-14] MEDS ORDERED: PIPERACILLIN/TAZOBACTAM 3.375 GM VIAL IVPB ONE ×3 (01:42→16:09)
[2020-12-14] MEDS ORDERED: DEXTROSE 5%-WATER - 50 ML IVPB ONE ×3 (01:42→16:09)
[2020-12-14] MEDS: PIPERACILLIN/TAZOB 3.375 GM 3.375 GM in DEXTROSE 5%-WATER - 50 ML IVPB SCH ×3 (02:19→17:10)
[2020-12-14] MEDS: GABAPENTIN 300 MG CAPSULE PO SCH ×3 (06:19→22:12)
[2020-12-14] MEDS ORDERED: PT OWN MED DRAWER 7, Y5N ONE ×5 (06:53→14:15)
[2020-12-14] MEDS: ASPIRIN COATED 81 MG TABLET.EC PO SCH ×2 (09:06→22:12)
[2020-12-14] MEDS: PANTOPRAZOLE 40 MG TABLET PO SCH (09:06)
[2020-12-14] MEDS: SENNOSIDES/DOCUSATE COMBO (SENNA PLUS) TABLET (UD) PO SCH ×2 (09:09→22:12)
[2020-12-14] MEDS: DOCUSATE SODIUM 100 MG CAPSULE (FP) PO SCH ×2 (09:09→22:12)
[2020-12-14] MEDS: POLYETHYLENE GLYCOL (HEALTHYLAX) 3350 17 GM PACKET PO SCH (09:09)
[2020-12-14] MEDS: LIDOCAINE 5% TOPICAL PATCH TP SCH (09:10)
[2020-12-14 09:25] LABS: BASO % 1.7 % (0-2.0); EOS % 7.9 % (0-4.5); HEMATOCRIT 31.3 % (35.4-49); HEMOGLOBIN 10.7 GM/dL (11.7-16.9); LYMPH % 28.5 % (8-40); MCH 31.4 pg (25.7-33.7); MEAN CELL VOLUME 92.5 fl (80-96); MONO % 8.9 % (3.8-10.2); PLATELET COUNT 273 10^3/uL (134-434); RBC 3.39 M/mm3 (4.00-5.60); RDW 14.6 % (11.9-15.9); WHITE BLOOD COUNT 5.2 K/mm3 (4.0-10.0)
[2020-12-14] MEDS: VERAPAMIL HCL 120 MG E.R. TABLET PO SCH (09:33)
[2020-12-14 09:51] LABS: ALBUMIN 3.5 g/dl (3.4-5.0); BLOOD UREA NITROGEN 14.8 mg/dL (7-18); CALCIUM 8.5 mg/dL (8.5-10.1); MAGNESIUM 2.1 mg/dL (1.8-2.4)
[2020-12-14 09:54] LABS: CREATININE 1.1 mg/dL (0.55-1.3)
[2020-12-14 09:56] LABS: BILIRUBIN,TOTAL 0.3 mg/dL (0.2-1)
[2020-12-14] MEDS: ATORVASTATIN CA 40 MG TABLET (FP) PO SCH (22:12)
[2020-12-14] MEDS: LIDOCAINE PATCH REMOVAL MC SCH (22:12)
[2020-12-15] MEDS ORDERED: PT OWN MED DRAWER 7, Y5N ONE ×2 (00:44→09:17)
[2020-12-15] MEDS: VANCOMYCIN/WATER BAGS 1,250 MG/250 ML BAG IVPB SCH ×2 (00:45→12:18)
[2020-12-15] MEDS ORDERED: PIPERACILLIN/TAZOBACTAM 3.375 GM VIAL IVPB ONE ×3 (01:44→17:30)
[2020-12-15] MEDS ORDERED: DEXTROSE 5%-WATER - 50 ML IVPB ONE ×3 (01:44→17:30)
[2020-12-15] MEDS: PIPERACILLIN/TAZOB 3.375 GM 3.375 GM in DEXTROSE 5%-WATER - 50 ML IVPB SCH ×3 (02:19→17:36)
[2020-12-15] MEDS: GABAPENTIN 300 MG CAPSULE PO SCH ×3 (06:49→21:49)
[2020-12-15] MEDS: oxyCODONE HCL 5 MG TABLET PO PRN (09:23)
[2020-12-15] MEDS: LIDOCAINE 5% TOPICAL PATCH TP SCH (09:24)
[2020-12-15] MEDS: POLYETHYLENE GLYCOL (HEALTHYLAX) 3350 17 GM PACKET PO SCH (09:24)
[2020-12-15] MEDS: ASPIRIN COATED 81 MG TABLET.EC PO SCH ×2 (09:25→21:50)
[2020-12-15] MEDS: PANTOPRAZOLE 40 MG TABLET PO SCH (09:25)
[2020-12-15] MEDS: VERAPAMIL HCL 120 MG E.R. TABLET PO SCH (09:25)
[2020-12-15] MEDS: SENNOSIDES/DOCUSATE COMBO (SENNA PLUS) TABLET (UD) PO SCH ×2 (09:25→21:49)
[2020-12-15] MEDS: DOCUSATE SODIUM 100 MG CAPSULE (FP) PO SCH ×2 (09:25→21:49)
[2020-12-15 09:46] LABS: BASO % 1.2 % (0-2.0); EOS % 8.3 % (0-4.5); HEMATOCRIT 30.9 % (35.4-49); HEMOGLOBIN 10.8 GM/dL (11.7-16.9); LYMPH % 19.3 % (8-40); MCH 32.4 pg (25.7-33.7); MCHC 34.8 g/dl (32.0-35.9); MEAN CELL VOLUME 93.1 fl (80-96); MEAN PLT VOLUME 9.1 fl (7.5-11.1); MONO % 8.1 % (3.8-10.2); NEUT % 63.1 % (42.8-82.8); PLATELET COUNT 262 10^3/uL (134-434); RBC 3.32 M/mm3 (4.00-5.60); RDW 14.5 % (11.9-15.9); WHITE BLOOD COUNT 6.6 K/mm3 (4.0-10.0)
[2020-12-15 10:08] LABS: CALCIUM 7.9 mg/dL (8.5-10.1)
[2020-12-15 10:09] LABS: ALBUMIN 3.3 g/dl (3.4-5.0)
[2020-12-15 10:12] LABS: CREATININE 1.1 mg/dL (0.55-1.3)
[2020-12-15 10:13] LABS: BILIRUBIN,TOTAL 0.2 mg/dL (0.2-1); TOT PROT 6.4 g/dl (6.4-8.2)
[2020-12-15] MEDS: ATORVASTATIN CA 40 MG TABLET (FP) PO SCH (21:50)
[2020-12-15] MEDS: LIDOCAINE PATCH REMOVAL MC SCH (21:50)
[2020-12-16] MEDS ORDERED: PT OWN MED DRAWER 7, Y5N ONE ×3 (00:29→13:40)
[2020-12-16] MEDS: VANCOMYCIN/WATER BAGS 1,250 MG/250 ML BAG IVPB SCH ×2 (00:35→13:44)
[2020-12-16] MEDS ORDERED: PIPERACILLIN/TAZOBACTAM 3.375 GM VIAL IVPB ONE ×3 (01:45→17:27)
[2020-12-16] MEDS ORDERED: DEXTROSE 5%-WATER - 50 ML IVPB ONE ×3 (01:45→17:28)
[2020-12-16] MEDS: PIPERACILLIN/TAZOB 3.375 GM 3.375 GM in DEXTROSE 5%-WATER - 50 ML IVPB SCH ×3 (02:10→17:28)
[2020-12-16] MEDS: GABAPENTIN 300 MG CAPSULE PO SCH ×3 (05:49→22:16)
[2020-12-16 08:37] LABS: BASO % 1.3 % (0-2.0); EOS % 12.2 % (0-4.5); HEMOGLOBIN 9.6 GM/dL (11.7-16.9); LYMPH % 16.3 % (8-40); MCH 31.5 pg (25.7-33.7); MCHC 34.1 g/dl (32.0-35.9); MEAN CELL VOLUME 92.4 fl (80-96); MEAN PLT VOLUME 8.8 fl (7.5-11.1); MONO % 14.5 % (3.8-10.2); NEUT % 55.7 % (42.8-82.8); PLATELET COUNT 225 10^3/uL (134-434); RBC 3.03 M/mm3 (4.00-5.60); RDW 14.7 % (11.9-15.9); WHITE BLOOD COUNT 5.8 K/mm3 (4.0-10.0)
[2020-12-16 08:54] LABS: CALCIUM 8.2 mg/dL (8.5-10.1)
[2020-12-16 08:55] LABS: BLOOD UREA NITROGEN 13.1 mg/dL (7-18)
[2020-12-16 08:58] LABS: CREATININE 1.1 mg/dL (0.55-1.3)
[2020-12-16 09:00] LABS: BILIRUBIN,TOTAL 0.5 mg/dL (0.2-1)
[2020-12-16] MEDS: ASPIRIN COATED 81 MG TABLET.EC PO SCH ×2 (09:55→22:15)
[2020-12-16] MEDS: POLYETHYLENE GLYCOL (HEALTHYLAX) 3350 17 GM PACKET PO SCH (09:55)
[2020-12-16] MEDS: DOCUSATE SODIUM 100 MG CAPSULE (FP) PO SCH ×2 (09:55→22:10)
[2020-12-16] MEDS: PANTOPRAZOLE 40 MG TABLET PO SCH (09:56)
[2020-12-16] MEDS: SENNOSIDES/DOCUSATE COMBO (SENNA PLUS) TABLET (UD) PO SCH ×2 (09:56→22:16)
[2020-12-16] MEDS: LIDOCAINE 5% TOPICAL PATCH TP SCH (09:56)
[2020-12-16] MEDS: VERAPAMIL HCL 120 MG E.R. TABLET PO SCH (10:08)
[2020-12-16] MEDS: oxyCODONE HCL 5 MG TABLET PO PRN (17:53)
[2020-12-16] MEDS: ATORVASTATIN CA 40 MG TABLET (FP) PO SCH (22:10)
[2020-12-16] MEDS: LIDOCAINE PATCH REMOVAL MC SCH (22:15)
[2020-12-17] MEDS: VANCOMYCIN/WATER BAGS 1,250 MG/250 ML BAG IVPB SCH ×2 (00:13→12:45)
[2020-12-17] MEDS: oxyCODONE HCL 5 MG TABLET PO PRN ×2 (00:28→22:25)
[2020-12-17] MEDS ORDERED: DEXTROSE 5%-WATER - 50 ML IVPB ONE ×3 (01:06→17:48)
[2020-12-17] MEDS ORDERED: PIPERACILLIN/TAZOBACTAM 3.375 GM VIAL IVPB ONE ×3 (01:06→17:48)
[2020-12-17] MEDS: PIPERACILLIN/TAZOB 3.375 GM 3.375 GM in DEXTROSE 5%-WATER - 50 ML IVPB SCH ×3 (02:58→18:31)
[2020-12-17] MEDS: GABAPENTIN 300 MG CAPSULE PO SCH ×3 (05:01→22:22)
[2020-12-17 09:16] LABS: EOS % 11.3 % (0-4.5); HEMATOCRIT 29.5 % (35.4-49); HEMOGLOBIN 10.1 GM/dL (11.7-16.9); LYMPH % 14.6 % (8-40); MCH 31.4 pg (25.7-33.7); MCHC 34.2 g/dl (32.0-35.9); MEAN CELL VOLUME 91.8 fl (80-96); MEAN PLT VOLUME 8.8 fl (7.5-11.1); MONO % 13.8 % (3.8-10.2); NEUT % 59.3 % (42.8-82.8); PLATELET COUNT 229 10^3/uL (134-434); RBC 3.21 M/mm3 (4.00-5.60); RDW 14.8 % (11.9-15.9); WHITE BLOOD COUNT 5.8 K/mm3 (4.0-10.0)
[2020-12-17] MEDS ORDERED: ALBUTEROL SO4 2.5/IPRATROPIUM 0.5 INH SOL 3 ML VIAL.NEB. NEB ONE (09:41)
[2020-12-17] MEDS: POLYETHYLENE GLYCOL (HEALTHYLAX) 3350 17 GM PACKET PO SCH (09:50)
[2020-12-17] MEDS: DOCUSATE SODIUM 100 MG CAPSULE (FP) PO SCH ×2 (09:50→22:22)
[2020-12-17] MEDS: VERAPAMIL HCL 120 MG E.R. TABLET PO SCH (09:50)
[2020-12-17] MEDS: ASPIRIN COATED 81 MG TABLET.EC PO SCH ×2 (09:50→22:22)
[2020-12-17] MEDS: LIDOCAINE 5% TOPICAL PATCH TP SCH (09:51)
[2020-12-17] MEDS: SENNOSIDES/DOCUSATE COMBO (SENNA PLUS) TABLET (UD) PO SCH ×2 (09:51→22:21)
[2020-12-17] MEDS: PANTOPRAZOLE 40 MG TABLET PO SCH (09:51)
[2020-12-17 10:12] LABS: BLOOD UREA NITROGEN 13.1 mg/dL (7-18)
[2020-12-17 10:15] LABS: CALCIUM 7.9 mg/dL (8.5-10.1); MAGNESIUM 2.1 mg/dL (1.8-2.4)
[2020-12-17 10:19] LABS: BILIRUBIN,TOTAL 0.2 mg/dL (0.2-1); TOT PROT 6.1 g/dl (6.4-8.2)
[2020-12-17] MEDS ORDERED: PT OWN MED DRAWER 7, Y5N ONE (12:37)
[2020-12-17] MEDS ORDERED: ONDANSETRON 4 MG/2 ML VIAL ONE (15:07)
[2020-12-17] MEDS ORDERED: LIDOCAINE HCL 2% JELLY (5 ML/TUBE) ONE (15:07)
[2020-12-17] MEDS ORDERED: KETOROLAC TROMETHAMINE 30 MG/1 ML VIAL ONE (15:07)
[2020-12-17] MEDS ORDERED: LIDOCAINE HCL/PF 2% SDV 5ML VIAL ONE (15:07)
[2020-12-17] MEDS ORDERED: MIDAZOLAM HCL 2 MG/2 ML SINGLE DOSE VIAL ONE (15:12)
[2020-12-17] MEDS ORDERED: PROPOFOL 20 ML ONE (15:12)
[2020-12-17] MEDS ORDERED: SUCCINYLCHOLINE CHLORIDE 200 MG/10 ML SYRINGE ONE (15:15)
[2020-12-17] MEDS ORDERED: DEXMEDETOMIDINE HCL 200 MCG/2 ML IVPB ONE (15:20)
[2020-12-17] MEDS ORDERED: ACETAMINOPHEN INJECTION 100 ML IVPB ONE (15:20)
[2020-12-17] MEDS ORDERED: BACITRACIN 50,000 UNITS VIAL TP ONE (16:05)
[2020-12-17] MEDS ORDERED: ONDANSETRON 4 MG/2 ML VIAL IVPUSH PRN ×4 (17:11→18:58)
[2020-12-17] MEDS ORDERED: LACTATED RINGERS SOLUTION 1,000 ML IV SCH (17:15)
[2020-12-17] MEDS ORDERED: HYDROmorphone HCl 2 MG/ML VIAL IVPUSH PRN (17:31)
[2020-12-17] MEDS ORDERED: HYDROmorphone HCl 2 MG/ML VIAL IVPUSH ONE (17:34)
[2020-12-17] MEDS ORDERED: MAGNESIUM HYDROX 2400MG/30ML ORAL SUSPENSION 30 ML CUP PO PRN (18:49)
[2020-12-17] MEDS ORDERED: PROMETHAZINE HCL 25 MG/1 ML VIAL IVPB PRN (18:49)
[2020-12-17] MEDS ORDERED: MAG HYDROX/AL HYDROX/SIMETH 30 ML UNIT-DOSE CUP PO PRN (18:49)
[2020-12-17] MEDS: LACTATED RINGERS SOLUTION 1,000 ML IV SCH (18:55)
[2020-12-17] MEDS ORDERED: LIDOCAINE PATCH REMOVAL MC SCH (22:00)
[2020-12-17] MEDS: LIDOCAINE PATCH REMOVAL MC SCH (22:22)
[2020-12-17] MEDS: ATORVASTATIN CA 40 MG TABLET (FP) PO SCH (22:22)
[2020-12-18] MEDS ORDERED: PIPERACILLIN/TAZOBACTAM 3.375 GM VIAL IVPB ONE ×4 (01:46→17:38)
[2020-12-18] MEDS ORDERED: PT OWN MED DRAWER 7, Y5N ONE ×3 (01:46→13:22)
[2020-12-18] MEDS ORDERED: DEXTROSE 5%-WATER - 50 ML IVPB ONE ×4 (01:46→17:38)
[2020-12-18] MEDS: PIPERACILLIN/TAZOB 3.375 GM 3.375 GM in DEXTROSE 5%-WATER - 50 ML IVPB SCH ×3 (01:47→18:07)
[2020-12-18] MEDS: VANCOMYCIN/WATER BAGS 1,250 MG/250 ML BAG IVPB SCH ×2 (01:52→13:38)
[2020-12-18] MEDS: GABAPENTIN 300 MG CAPSULE PO SCH ×4 (05:52→21:16)
[2020-12-18] MEDS: POLYETHYLENE GLYCOL (HEALTHYLAX) 3350 17 GM PACKET PO SCH (09:56)
[2020-12-18] MEDS: LIDOCAINE 5% TOPICAL PATCH TP SCH (09:56)
[2020-12-18] MEDS: PANTOPRAZOLE 40 MG TABLET PO SCH (09:57)
[2020-12-18] MEDS: DOCUSATE SODIUM 100 MG CAPSULE (FP) PO SCH ×2 (09:57→21:16)
[2020-12-18] MEDS: ASPIRIN COATED 81 MG TABLET.EC PO SCH ×2 (09:57→21:15)
[2020-12-18] MEDS: VERAPAMIL HCL 120 MG E.R. TABLET PO SCH (09:57)
[2020-12-18] MEDS: SENNOSIDES/DOCUSATE COMBO (SENNA PLUS) TABLET (UD) PO SCH ×2 (09:57→21:15)
[2020-12-18] MEDS: oxyCODONE HCL 5 MG TABLET PO PRN ×2 (11:58→22:56)
[2020-12-18 12:21] LABS: EOS % 12.8 % (0-4.5); HEMATOCRIT 29.8 % (35.4-49); HEMOGLOBIN 10.2 GM/dL (11.7-16.9); LYMPH % 15.2 % (8-40); MCH 31.4 pg (25.7-33.7); MCHC 34.1 g/dl (32.0-35.9); MEAN CELL VOLUME 92.1 fl (80-96); MONO % 12.7 % (3.8-10.2); NEUT % 58.3 % (42.8-82.8); PLATELET COUNT 235 10^3/uL (134-434); RBC 3.24 M/mm3 (4.00-5.60); RDW 14.7 % (11.9-15.9); WHITE BLOOD COUNT 5.4 K/mm3 (4.0-10.0)
[2020-12-18 12:58] LABS: ALBUMIN 3.1 g/dl (3.4-5.0); BLOOD UREA NITROGEN 12.6 mg/dL (7-18); CALCIUM 8.4 mg/dL (8.5-10.1)
[2020-12-18 12:59] LABS: MAGNESIUM 2.1 mg/dL (1.8-2.4)
[2020-12-18 13:01] LABS: CREATININE 1.1 mg/dL (0.55-1.3)
[2020-12-18 13:02] LABS: BILIRUBIN,TOTAL 0.3 mg/dL (0.2-1); TOT PROT 6.3 g/dl (6.4-8.2)
[2020-12-18] MEDS: LACTATED RINGERS SOLUTION 1,000 ML IV SCH (19:50)
[2020-12-18] MEDS: ATORVASTATIN CA 40 MG TABLET (FP) PO SCH (21:15)
[2020-12-18] MEDS: LIDOCAINE PATCH REMOVAL MC SCH (21:16)
[2020-12-19] MEDS: VANCOMYCIN/WATER BAGS 1,250 MG/250 ML BAG IVPB SCH ×2 (00:30→14:02)
[2020-12-19] MEDS ORDERED: PIPERACILLIN/TAZOBACTAM 3.375 GM VIAL IVPB ONE ×3 (01:19→18:27)
[2020-12-19] MEDS ORDERED: PT OWN MED DRAWER 7, Y5N ONE ×3 (01:19→13:57)
[2020-12-19] MEDS ORDERED: DEXTROSE 5%-WATER - 50 ML IVPB ONE ×3 (01:19→18:27)
[2020-12-19] MEDS: PIPERACILLIN/TAZOB 3.375 GM 3.375 GM in DEXTROSE 5%-WATER - 50 ML IVPB SCH ×3 (02:22→18:32)
[2020-12-19] MEDS: GABAPENTIN 300 MG CAPSULE PO SCH ×4 (06:36→21:19)
[2020-12-19] MEDS: LACTATED RINGERS SOLUTION 1,000 ML IV SCH (06:37)
[2020-12-19] MEDS ORDERED: NALOXONE HCL 0.4 MG/ML VIAL IVPUSH PRN ×2 (09:49→16:02)
[2020-12-19] MEDS: POLYETHYLENE GLYCOL (HEALTHYLAX) 3350 17 GM PACKET PO SCH (10:05)
[2020-12-19] MEDS: ASPIRIN COATED 81 MG TABLET.EC PO SCH ×2 (10:05→21:19)
[2020-12-19] MEDS: SENNOSIDES/DOCUSATE COMBO (SENNA PLUS) TABLET (UD) PO SCH ×2 (10:06→21:20)
[2020-12-19] MEDS: DOCUSATE SODIUM 100 MG CAPSULE (FP) PO SCH ×2 (10:06→21:19)
[2020-12-19] MEDS: PANTOPRAZOLE 40 MG TABLET PO SCH (10:06)
[2020-12-19] MEDS: VERAPAMIL HCL 120 MG E.R. TABLET PO SCH (10:36)
[2020-12-19] MEDS: oxyCODONE HCL 5 MG TABLET PO PRN ×2 (10:40→21:24)
[2020-12-19] MEDS ORDERED: PROPOFOL 20 ML ONE ×2 (14:05→14:50)
[2020-12-19] MEDS: LIDOCAINE 5% TOPICAL PATCH TP SCH (14:22)
[2020-12-19] MEDS ORDERED: MIDAZOLAM HCL 2 MG/2 ML SINGLE DOSE VIAL ONE ×2 (14:26)
[2020-12-19] MEDS ORDERED: VANCOMYCIN 1,000 MG VIAL (RESTRICTED TO ID ONLY) ONE (15:02)
[2020-12-19] MEDS ORDERED: VANCOMYCIN 1,000 MG VIAL (RESTRICTED TO ID ONLY) IVPB ONE (15:22)
[2020-12-19] MEDS ORDERED: ceFAZolin 2 GRAM PREMIX BAG IVPB ONE (15:22)
[2020-12-19] MEDS ORDERED: ONDANSETRON 4 MG/2 ML VIAL IVPUSH PRN ×2 (15:42→16:02)
[2020-12-19] MEDS ORDERED: LACTATED RINGERS SOLUTION 1,000 ML IV SCH (15:45)
[2020-12-19] MEDS ORDERED: diazePAM CARPU-JECT 10 MG/2 ML DISP.SYRIN IVPUSH ONE (15:46)
[2020-12-19] MEDS ORDERED: PROMETHAZINE HCL 25 MG/1 ML VIAL IVPB PRN (16:02)
[2020-12-19] MEDS ORDERED: MAG HYDROX/AL HYDROX/SIMETH 30 ML UNIT-DOSE CUP PO PRN (16:02)
[2020-12-19] MEDS ORDERED: MAGNESIUM HYDROX 2400MG/30ML ORAL SUSPENSION 30 ML CUP PO PRN (16:02)
[2020-12-19] MEDS ORDERED: HYDROmorphone HCl 2 MG/ML VIAL IVPUSH PRN (16:02)
[2020-12-19] MEDS: HYDROmorphone HCL CARPU-JECT 2 MG/1 ML DISP.SYRIN IVPUSH ONE ×3 (16:05→16:25)
[2020-12-19] MEDS ORDERED: HYDROmorphone HCl 2 MG/ML VIAL ONE (16:07)
[2020-12-19 19:37] LABS: BASO % 0.9 % (0-2.0); EOS % 11.5 % (0-4.5); HEMATOCRIT 31.8 % (35.4-49); HEMOGLOBIN 10.5 GM/dL (11.7-16.9); LYMPH % 17.2 % (8-40); MCH 30.5 pg (25.7-33.7); MCHC 33.1 g/dl (32.0-35.9); MEAN CELL VOLUME 92.1 fl (80-96); MEAN PLT VOLUME 8.7 fl (7.5-11.1); MONO % 6.6 % (3.8-10.2); NEUT % 63.8 % (42.8-82.8); PLATELET COUNT 268 10^3/uL (134-434); RBC 3.45 M/mm3 (4.00-5.60); RDW 14.8 % (11.9-15.9); WHITE BLOOD COUNT 5.4 K/mm3 (4.0-10.0)
[2020-12-19 19:56] LABS: BLOOD UREA NITROGEN 10.9 mg/dL (7-18); CALCIUM 8.7 mg/dL (8.5-10.1); MAGNESIUM 1.9 mg/dL (1.8-2.4)
[2020-12-19 19:57] LABS: ALBUMIN 3.3 g/dl (3.4-5.0)
[2020-12-19 20:00] LABS: CREATININE 0.9 mg/dL (0.55-1.3)
[2020-12-19 20:01] LABS: BILIRUBIN,TOTAL 0.3 mg/dL (0.2-1); TOT PROT 6.6 g/dl (6.4-8.2)
[2020-12-19] MEDS: ATORVASTATIN CA 40 MG TABLET (FP) PO SCH (21:19)
[2020-12-19] MEDS: LIDOCAINE PATCH REMOVAL MC SCH (21:20)
[2020-12-19] MEDS ORDERED: LIDOCAINE PATCH REMOVAL MC SCH (22:00)
[2020-12-20] MEDS ORDERED: PT OWN MED DRAWER 7, Y5N ONE (00:42)
[2020-12-20] MEDS: VANCOMYCIN/WATER BAGS 1,250 MG/250 ML BAG IVPB SCH ×2 (00:45→12:14)
[2020-12-20] MEDS ORDERED: DEXTROSE 5%-WATER - 50 ML IVPB ONE ×3 (02:33→16:24)
[2020-12-20] MEDS: PIPERACILLIN/TAZOB 3.375 GM 3.375 GM in DEXTROSE 5%-WATER - 50 ML IVPB SCH ×3 (02:33→17:03)
[2020-12-20] MEDS ORDERED: PIPERACILLIN/TAZOBACTAM 3.375 GM VIAL IVPB ONE ×3 (02:33→16:23)
[2020-12-20] MEDS: GABAPENTIN 300 MG CAPSULE PO SCH ×3 (05:53→22:20)
[2020-12-20] MEDS: oxyCODONE HCL 5 MG TABLET PO PRN ×3 (09:57→22:20)
[2020-12-20] MEDS: SENNOSIDES/DOCUSATE COMBO (SENNA PLUS) TABLET (UD) PO SCH ×2 (10:01→22:20)
[2020-12-20] MEDS: VERAPAMIL HCL 120 MG E.R. TABLET PO SCH (10:02)
[2020-12-20] MEDS: DOCUSATE SODIUM 100 MG CAPSULE (FP) PO SCH ×2 (10:02→22:21)
[2020-12-20] MEDS: ASPIRIN COATED 81 MG TABLET.EC PO SCH ×2 (10:02→22:21)
[2020-12-20] MEDS: PANTOPRAZOLE 40 MG TABLET PO SCH (10:02)
[2020-12-20 10:03] LABS: BASO % 0.7 % (0-2.0); EOS % 13.5 % (0-4.5); HEMATOCRIT 28.3 % (35.4-49); HEMOGLOBIN 9.7 GM/dL (11.7-16.9); LYMPH % 13.8 % (8-40); MCH 31.3 pg (25.7-33.7); MCHC 34.2 g/dl (32.0-35.9); MEAN CELL VOLUME 91.7 fl (80-96); MEAN PLT VOLUME 8.7 fl (7.5-11.1); MONO % 11.7 % (3.8-10.2); NEUT % 60.3 % (42.8-82.8); PLATELET COUNT 268 10^3/uL (134-434); RBC 3.09 M/mm3 (4.00-5.60); RDW 14.2 % (11.9-15.9); WHITE BLOOD COUNT 5.8 K/mm3 (4.0-10.0)
[2020-12-20] MEDS: POLYETHYLENE GLYCOL (HEALTHYLAX) 3350 17 GM PACKET PO SCH (10:03)
[2020-12-20] MEDS: LIDOCAINE 5% TOPICAL PATCH TP SCH (10:03)
[2020-12-20 10:25] LABS: ALBUMIN 2.8 g/dl (3.4-5.0); CALCIUM 8.3 mg/dL (8.5-10.1); MAGNESIUM 1.9 mg/dL (1.8-2.4)
[2020-12-20 10:26] LABS: BLOOD UREA NITROGEN 11.8 mg/dL (7-18)
[2020-12-20 10:29] LABS: TOT PROT 5.9 g/dl (6.4-8.2)
[2020-12-20 10:32] LABS: BILIRUBIN,TOTAL 0.3 mg/dL (0.2-1); CREATININE 0.9 mg/dL (0.55-1.3)
[2020-12-20] MEDS: ATORVASTATIN CA 40 MG TABLET (FP) PO SCH (22:21)
[2020-12-20] MEDS: LIDOCAINE PATCH REMOVAL MC SCH (22:40)
[2020-12-21] MEDS ORDERED: PT OWN MED DRAWER 7, Y5N ONE ×2 (00:14→09:40)
[2020-12-21] MEDS: VANCOMYCIN/WATER BAGS 1,250 MG/250 ML BAG IVPB SCH ×2 (00:16→12:51)
[2020-12-21] MEDS ORDERED: DEXTROSE 5%-WATER - 50 ML IVPB ONE ×3 (01:19→17:34)
[2020-12-21] MEDS ORDERED: PIPERACILLIN/TAZOBACTAM 3.375 GM VIAL IVPB ONE ×3 (01:19→17:34)
[2020-12-21] MEDS: PIPERACILLIN/TAZOB 3.375 GM 3.375 GM in DEXTROSE 5%-WATER - 50 ML IVPB SCH ×3 (02:48→17:37)
[2020-12-21] MEDS: oxyCODONE HCL 5 MG TABLET PO PRN ×3 (06:39→21:00)
[2020-12-21] MEDS: GABAPENTIN 300 MG CAPSULE PO SCH ×3 (06:40→21:00)
[2020-12-21 08:26] LABS: EOS % 13.2 % (0-4.5); HEMATOCRIT 29.8 % (35.4-49); HEMOGLOBIN 10.2 GM/dL (11.7-16.9); LYMPH % 16.9 % (8-40); MCH 31.3 pg (25.7-33.7); MCHC 34.2 g/dl (32.0-35.9); MEAN CELL VOLUME 91.7 fl (80-96); MEAN PLT VOLUME 8.7 fl (7.5-11.1); MONO % 11.8 % (3.8-10.2); NEUT % 57.1 % (42.8-82.8); PLATELET COUNT 289 10^3/uL (134-434); RBC 3.25 M/mm3 (4.00-5.60); RDW 14.8 % (11.9-15.9); WHITE BLOOD COUNT 6.1 K/mm3 (4.0-10.0)
[2020-12-21 08:33] LABS: ALBUMIN 3.2 g/dl (3.4-5.0); BLOOD UREA NITROGEN 9.6 mg/dL (7-18); CALCIUM 8.4 mg/dL (8.5-10.1)
[2020-12-21 08:38] LABS: BILIRUBIN,TOTAL 0.3 mg/dL (0.2-1); TOT PROT 6.3 g/dl (6.4-8.2)
[2020-12-21] MEDS: LIDOCAINE 5% TOPICAL PATCH TP SCH (09:43)
[2020-12-21] MEDS: DOCUSATE SODIUM 100 MG CAPSULE (FP) PO SCH ×2 (09:44→21:00)
[2020-12-21] MEDS: SENNOSIDES/DOCUSATE COMBO (SENNA PLUS) TABLET (UD) PO SCH ×2 (09:44→20:59)
[2020-12-21] MEDS: ASPIRIN COATED 81 MG TABLET.EC PO SCH ×2 (09:44→21:03)
[2020-12-21] MEDS: POLYETHYLENE GLYCOL (HEALTHYLAX) 3350 17 GM PACKET PO SCH (09:44)
[2020-12-21] MEDS: PANTOPRAZOLE 40 MG TABLET PO SCH (09:44)
[2020-12-21] MEDS: VERAPAMIL HCL 120 MG E.R. TABLET PO SCH (09:45)
[2020-12-21] MEDS: ATORVASTATIN CA 40 MG TABLET (FP) PO SCH (21:00)
[2020-12-21] MEDS: LIDOCAINE PATCH REMOVAL MC SCH (21:03)
[2020-12-22] MEDS ORDERED: PIPERACILLIN/TAZOBACTAM 3.375 GM VIAL IVPB ONE ×3 (01:06→17:39)
[2020-12-22] MEDS ORDERED: DEXTROSE 5%-WATER - 50 ML IVPB ONE ×3 (01:06→17:39)
[2020-12-22] MEDS ORDERED: PT OWN MED DRAWER 7, Y5N ONE ×4 (01:06→18:22)
[2020-12-22] MEDS: VANCOMYCIN/WATER BAGS 1,250 MG/250 ML BAG IVPB SCH (01:11)
[2020-12-22] MEDS: PIPERACILLIN/TAZOB 3.375 GM 3.375 GM in DEXTROSE 5%-WATER - 50 ML IVPB SCH ×3 (01:12→17:45)
[2020-12-22] MEDS: oxyCODONE HCL 5 MG TABLET PO PRN ×2 (06:18→21:50)
[2020-12-22] MEDS: GABAPENTIN 300 MG CAPSULE PO SCH ×3 (06:23→22:11)
[2020-12-22] MEDS: PANTOPRAZOLE 40 MG TABLET PO SCH ×2 (10:00→10:24)
[2020-12-22] MEDS: VERAPAMIL HCL 120 MG E.R. TABLET PO SCH ×2 (10:02→10:24)
[2020-12-22] MEDS: ASPIRIN COATED 81 MG TABLET.EC PO SCH ×2 (10:25→22:11)
[2020-12-22] MEDS: DOCUSATE SODIUM 100 MG CAPSULE (FP) PO SCH ×2 (10:25→22:10)
[2020-12-22] MEDS: SENNOSIDES/DOCUSATE COMBO (SENNA PLUS) TABLET (UD) PO SCH ×2 (10:25→22:10)
[2020-12-22] MEDS: LIDOCAINE 5% TOPICAL PATCH TP SCH (10:25)
[2020-12-22] MEDS: POLYETHYLENE GLYCOL (HEALTHYLAX) 3350 17 GM PACKET PO SCH (10:25)
[2020-12-22 10:39] LABS: BASO % 0.7 % (0-2.0); EOS % 11.6 % (0-4.5); HEMOGLOBIN 10.5 GM/dL (11.7-16.9); LYMPH % 13.7 % (8-40); MCHC 33.9 g/dl (32.0-35.9); MEAN CELL VOLUME 91.2 fl (80-96); MEAN PLT VOLUME 8.9 fl (7.5-11.1); PLATELET COUNT 322 10^3/uL (134-434); RBC 3.39 M/mm3 (4.00-5.60); RDW 14.5 % (11.9-15.9)
[2020-12-22 10:45] LABS: ALBUMIN 3.4 g/dl (3.4-5.0); BLOOD UREA NITROGEN 12.3 mg/dL (7-18)
[2020-12-22 10:47] LABS: CALCIUM 8.6 mg/dL (8.5-10.1); MAGNESIUM 1.9 mg/dL (1.8-2.4)
[2020-12-22 10:48] LABS: CREATININE 1.2 mg/dL (0.55-1.3)
[2020-12-22 10:49] LABS: BILIRUBIN,TOTAL 0.5 mg/dL (0.2-1)
[2020-12-22 10:51] LABS: TOT PROT 6.7 g/dl (6.4-8.2)
[2020-12-22] MEDS ORDERED: DEXMEDETOMIDINE HCL 200 MCG/2 ML IVPB ONE (15:02)
[2020-12-22] MEDS ORDERED: ACETAMINOPHEN INJECTION 100 ML IVPB ONE (15:03)
[2020-12-22] MEDS ORDERED: LIDOCAINE HCL/PF 2% SDV 5ML VIAL ONE (15:31)
[2020-12-22] MEDS ORDERED: MIDAZOLAM HCL 2 MG/2 ML SINGLE DOSE VIAL ONE (15:33)
[2020-12-22] MEDS ORDERED: SUCCINYLCHOLINE CHLORIDE 200 MG/10 ML SYRINGE ONE (15:37)
[2020-12-22] MEDS ORDERED: KETAMINE HCL 200 MG/20 ML VIAL ONE (15:37)
[2020-12-22] MEDS ORDERED: PROPOFOL 20 ML ONE ×2 (15:39)
[2020-12-22] MEDS ORDERED: LIDOCAINE HCL 2% JELLY (5 ML/TUBE) ONE (15:47)
[2020-12-22] MEDS ORDERED: HYDROmorphone HCL CARPU-JECT 2 MG/1 ML DISP.SYRIN IVPUSH ONE (16:57)
[2020-12-22] MEDS ORDERED: PROMETHAZINE HCL 25 MG/1 ML VIAL IVPB PRN (17:01)
[2020-12-22] MEDS ORDERED: MAGNESIUM HYDROX 2400MG/30ML ORAL SUSPENSION 30 ML CUP PO PRN (17:01)
[2020-12-22] MEDS ORDERED: ONDANSETRON 4 MG/2 ML VIAL IVPUSH PRN (17:01)
[2020-12-22] MEDS ORDERED: MAG HYDROX/AL HYDROX/SIMETH 30 ML UNIT-DOSE CUP PO PRN (17:01)
[2020-12-22] MEDS ORDERED: NALOXONE HCL 0.4 MG/ML VIAL IVPUSH PRN (17:01)
[2020-12-22] MEDS: ATORVASTATIN CA 40 MG TABLET (FP) PO SCH (22:03)
[2020-12-22] MEDS: LIDOCAINE PATCH REMOVAL MC SCH (22:11)
[2020-12-23] MEDS: VANCOMYCIN/WATER BAGS 1,250 MG/250 ML BAG IVPB SCH ×2 (00:34→14:35)
[2020-12-23] MEDS ORDERED: PIPERACILLIN/TAZOBACTAM 3.375 GM VIAL IVPB ONE ×4 (02:33→16:35)
[2020-12-23] MEDS ORDERED: DEXTROSE 5%-WATER - 50 ML IVPB ONE ×4 (02:33→16:36)
[2020-12-23] MEDS: oxyCODONE HCL 5 MG TABLET PO PRN ×3 (04:11→21:09)
[2020-12-23] MEDS: PIPERACILLIN/TAZOB 3.375 GM 3.375 GM in DEXTROSE 5%-WATER - 50 ML IVPB SCH ×2 (04:13→10:08)
[2020-12-23] MEDS: GABAPENTIN 300 MG CAPSULE PO SCH ×3 (06:44→22:48)
[2020-12-23] MEDS: VERAPAMIL HCL 120 MG E.R. TABLET PO SCH (10:09)
[2020-12-23] MEDS: DOCUSATE SODIUM 100 MG CAPSULE (FP) PO SCH ×2 (10:09→22:48)
[2020-12-23] MEDS: LIDOCAINE 5% TOPICAL PATCH TP SCH (10:09)
[2020-12-23] MEDS: ASPIRIN COATED 81 MG TABLET.EC PO SCH ×2 (10:10→22:47)
[2020-12-23] MEDS: SENNOSIDES/DOCUSATE COMBO (SENNA PLUS) TABLET (UD) PO SCH ×2 (10:10→22:47)
[2020-12-23] MEDS: POLYETHYLENE GLYCOL (HEALTHYLAX) 3350 17 GM PACKET PO SCH (10:10)
[2020-12-23] MEDS: PANTOPRAZOLE 40 MG TABLET PO SCH (10:11)
[2020-12-23 11:22] LABS: BASO % 0.8 % (0-2.0); HEMATOCRIT 26.4 % (35.4-49); HEMOGLOBIN 9.1 GM/dL (11.7-16.9); LYMPH % 10.3 % (8-40); MCH 31.1 pg (25.7-33.7); MCHC 34.5 g/dl (32.0-35.9); MEAN CELL VOLUME 90.1 fl (80-96); MEAN PLT VOLUME 8.4 fl (7.5-11.1); MONO % 15.9 % (3.8-10.2); PLATELET COUNT 271 10^3/uL (134-434); RBC 2.94 M/mm3 (4.00-5.60); RDW 14.4 % (11.9-15.9); WHITE BLOOD COUNT 6.8 K/mm3 (4.0-10.0)
[2020-12-23 11:42] LABS: CALCIUM 8.1 mg/dL (8.5-10.1)
[2020-12-23 11:44] LABS: MAGNESIUM 2.1 mg/dL (1.8-2.4)
[2020-12-23 11:46] LABS: CREATININE 1.2 mg/dL (0.55-1.3)
[2020-12-23 11:47] LABS: BILIRUBIN,TOTAL 0.5 mg/dL (0.2-1); TOT PROT 6.1 g/dl (6.4-8.2)
[2020-12-23] MEDS: ATORVASTATIN CA 40 MG TABLET (FP) PO SCH (22:48)
[2020-12-23] MEDS: LIDOCAINE PATCH REMOVAL MC SCH (22:49)
[2020-12-24] MEDS: VANCOMYCIN/WATER BAGS 1,250 MG/250 ML BAG IVPB SCH (02:10)
[2020-12-24] MEDS: oxyCODONE HCL 5 MG TABLET PO PRN ×2 (02:20→09:10)
[2020-12-24] MEDS ORDERED: DEXTROSE 5%-WATER - 50 ML IVPB ONE ×2 (04:43→08:57)
[2020-12-24] MEDS ORDERED: PIPERACILLIN/TAZOBACTAM 3.375 GM VIAL IVPB ONE ×2 (04:43→08:57)
[2020-12-24] MEDS: PIPERACILLIN/TAZOB 3.375 GM 3.375 GM in DEXTROSE 5%-WATER - 50 ML IVPB SCH ×2 (04:58→09:34)
[2020-12-24] MEDS: GABAPENTIN 300 MG CAPSULE PO SCH (06:10)
[2020-12-24 06:19] VITALS: BP 114/76; PULSE 76; TEMP 98.3
[2020-12-24] MEDS: LIDOCAINE 5% TOPICAL PATCH TP SCH (09:09)
[2020-12-24] MEDS: PANTOPRAZOLE 40 MG TABLET PO SCH (09:09)
[2020-12-24] MEDS: ASPIRIN COATED 81 MG TABLET.EC PO SCH (09:09)
[2020-12-24] MEDS: DOCUSATE SODIUM 100 MG CAPSULE (FP) PO SCH (09:09)
[2020-12-24] MEDS: POLYETHYLENE GLYCOL (HEALTHYLAX) 3350 17 GM PACKET PO SCH (09:09)
[2020-12-24] MEDS: SENNOSIDES/DOCUSATE COMBO (SENNA PLUS) TABLET (UD) PO SCH (09:09)
[2020-12-24] MEDS: VERAPAMIL HCL 120 MG E.R. TABLET PO SCH (09:34)
== END 2020-12-24 13:33 | DRG 908 ==
LOC: JER 12:15 → JERBED 16:50 → J4W 16:50 → UNDOADMIN 16:50 → J6S 18:59
PROVIDERS: ATTEND Nurse Practitioner Acute Care
PROC: 2W1MX6Z Compression of Left Lower Extremity using Pressure Dressing (ICD-10-PCS; 2020-12-05)
PROC: 2W3MX1Z Immobilization of Left Lower Extremity using Splint (ICD-10-PCS; 2020-12-05)
PROC: 2W0MX6Z Change Pressure Dressing on Left Lower Extremity (ICD-10-PCS; 2020-12-05)
PROC: 0HDLXZZ Extraction of Left Lower Leg Skin, External Approach (ICD-10-PCS; principal; 2020-12-05 16:30)
PROC: 0HDLXZZ Extraction of Left Lower Leg Skin, External Approach (ICD-10-PCS; 2020-12-09)
PROC: 2W1MX6Z Compression of Left Lower Extremity using Pressure Dressing (ICD-10-PCS; 2020-12-09)
PROC: 2W3MX1Z Immobilization of Left Lower Extremity using Splint (ICD-10-PCS; 2020-12-09)
PROC: 0HDLXZZ Extraction of Left Lower Leg Skin, External Approach (ICD-10-PCS; 2020-12-12)
PROC: 2W1RX6Z Compression of Left Lower Leg using Pressure Dressing (ICD-10-PCS; 2020-12-12)
PROC: 0HDLXZZ Extraction of Left Lower Leg Skin, External Approach (ICD-10-PCS; 2020-12-17)
PROC: 2W1MX6Z Compression of Left Lower Extremity using Pressure Dressing (ICD-10-PCS; 2020-12-17)
PROC: 0HDLXZZ Extraction of Left Lower Leg Skin, External Approach (ICD-10-PCS; 2020-12-19)
PROC: 0YQGXZZ Repair Left Knee Region, External Approach (ICD-10-PCS; 2020-12-22)
PROC: 02HV33Z Insertion of Infusion Device into Superior Vena Cava, Percutaneous Approach (ICD-10-PCS; 2020-12-23)
PROC: B548ZZA Ultrasonography of Superior Vena Cava, Guidance (ICD-10-PCS; 2020-12-23)
DX: T81.31XA Disruption of external operation (surgical) wound, not elsewhere classified, initial encounter (principal); I42.1 Obstructive hypertrophic cardiomyopathy; T81.49XA Infection following a procedure, other surgical site, initial encounter; L03.116 Cellulitis of left lower limb; I10 Essential (primary) hypertension; E78.5 Hyperlipidemia, unspecified; E66.01 Morbid (severe) obesity due to excess calories; G47.33 Obstructive sleep apnea (adult) (pediatric); Z68.36 Body mass index [BMI] 36.0-36.9, adult; G89.29 Other chronic pain; Y83.8 Other surgical procedures as the cause of abnormal reaction of the patient, or of later complication, without mention of misadventure at the time of the procedure
CPT/HCPCS: 36415; 36569; 77001-TC-FY; 80053; 83735; 85025; 85610; 85730; 87040; 87070; 87075; 87186; 87205; 93005; 93010; 93971-TC; 94010; 94640; 94760; 97116-GP; 97162-GP; 99285-25; C1751; C9803; G0480; J0131; U0003; U0005